=== PATIENT | female | born 1960 | race Caucasian/White ===

== ENCOUNTER 2016-04-05 08:16 | Emergency (ER) | payer MEDICAID, OTHER ==
[2016-04-05 09:12] LABS: % IMMATURE GRANULYOCYTES 0.4 % (0.0-1.1); ABSOLUTE IMMATURE GRANULOCYTES 0.02 10^3/uL (0.00-0.10); ADD DIFF? NO; ADD MORPH? NO; ADD SCAN? NO; ATYPICAL LYMPHOCYTE FLAG 10 (0-99); FRAGMENT RBC FLAG 0 (0-99); HEMATOCRIT 38.3 % (38.0-47.0); HEMOGLOBIN 13.4 g/dL (12.6-16.3); LEFT SHIFT FLG 0 (0-99); LIPEMIA HEMOLYSIS FLAG 90 (0-99); MEAN CELL HEMOGLOBIN 32.2 pg (27.9-34.1); MEAN CELL VOLUME 92.1 fL (81.5-99.8); MEAN PLATELET VOLUME 8.4 fL (8.7-11.7); PLATELET CLUMPS FLAG 0 (0-99); PLATELET COUNT 313 10^3/uL (150-400); RED BLOOD CELL COUNT 4.16 10^6/uL (4.18-5.33); RED CELL DISTRIBUTION WIDTH 12.2 % (11.5-15.2)
[2016-04-05 09:37] LABS: ANION GAP 10 mEq/L (8-16); CALCIUM 9.4 mg/dL (8.5-10.4); CARBON DIOXIDE 29 mEq/l (22-31); CHLORIDE 101 mEq/L (97-110); CREATININE 0.6 mg/dL (0.6-1.0); ETHANOL SERUM < 10 mg/dL (0-10); GLOMERULAR FILTRATION RATE > 60; GLUCOSE 83 mg/dL (70-100); POTASSIUM 4.5 mEq/L (3.5-5.2); SALICYLATE < 1.0 mg/dL (2.0-20.0); SODIUM 140 mEq/L (134-144)
--- NOTE | 2016-04-05 09:46 | EDPHY ---
H & P Stated Complaint: SI last night called crisis line, EPS placed on hold, already evaled - Personal History Current Tetanus/Diphtheria Vaccine: Yes Current Tetanus Diphtheria and Acellular Pertussis (TDAP): Yes - Medical/Surgical History Hx Asthma: No Hx Chronic Respiratory Disease: No Hx Diabetes: No Hx Cardiac Disease: No Hx Renal Disease: No Hx Cirrhosis: No Hx Alcoholism: No Hx HIV/AIDS: No Hx Splenectomy or Spleen Trauma: No Other PMH: pmh- chronic pain, bipolar, depression. psh- ortho - Social History Smoking Status: Former smoker Time Seen by Provider: 04/05/16 08:33 HPI/ROS: Chief complaint: Suicidal ideation, on mental health hold History of present illness: This is a 56-year-old female who presents to the emergency department for medical clearance for psychiatric placement. Patient reportedly has had suicidal ideation, she has had a plan of overdosing on medication. She contacted the crisis hotline last night and was evaluated by [facility] today. [facility] placed her on a mental health hold and sent her here for medical clearance in preparation for psychiatric placement. On my evaluation patient does report she had suicidal ideation. She denies suicidal ideation at this time. She denies homicidal ideation. She denies illness or injury. Review of systems: A 10 point review of systems was obtained and other than described above was negative (Danny Carmichael) - Physical Exam Exam: General Appearance: Alert, nontoxic. Eyes: Pupils equal and round no pallor or injection. ENT, Mouth: Mucous membranes moist. Respiratory: There are no retractions, lungs are clear to auscultation. Cardiovascular: Regular rate and rhythm. Gastrointestinal: Abdomen is soft and nontender, no masses, bowel sounds normal. Neurological: Alert and oriented x4. Cranial nerves 2-12 grossly intact. Strength and sensation intact and symmetrical. Skin: Warm and dry, no rashes. Musculoskeletal: Neck is supple nontender. Extremities are symmetrical, full range of motion. Psychiatric: Patient is oriented X 3, there is no agitation. (Danny Carmichael) Constitutional: Initial Vital Signs Temperature (C) 36.3 C 04/05/16 08:26 Heart Rate 63 04/05/16 08:26 Respiratory Rate 16 04/05/16 08:26 Blood Pressure 112/74 04/05/16 08:26 O2 Sat (%) 94 04/05/16 08:26 O2 Delivery Mode Room Air Allergies/Adverse Reactions: No Known Allergies Allergy (Unverified 04/25/09 19:43) Home Medications: Medication Instructions Recorded Lamictal 04/25/09 Lidocaine Patch 10/06/09 Percocet 10/06/09 fentanYL 04/17/14 Medical Decision Making ED Course/Re-evaluation: Patient seen under the supervision of my secondary supervising physician Dr. Lola Pisano. Patient presents to the emergency department on a mental health hold requiring a medical examination and clearance for psychiatric placement. On my evaluation patient is nontoxic. Afebrile and vital signs are stable. She has no specific complaints at this time. Blood studies are unremarkable. Patient is medically cleared for psychiatric placement. This is pending at time of dictation. Care of patient turned over to my attending physician Dr. Lola Pisano at end of shift. (Danny Carmichael) Differential Diagnosis: Included but not limited to depression, bipolar, schizophrenia, substance abuse (Danny Carmichael) Other Provider: The patient was evaluated and managed by the Physician Traffic Superintendent/ Nurse Practitioner. I discussed the patient's presentation and course with the midlevel provider with them and agree with the evaluation. My co-signature indicates that I have reviewed this chart and I agree with the findings and plan of care as documented. I am the secondary supervising physician. Patient was accepted transfer at 3:00 p.m.. She will be transferred to the [facility]. Transfer paperwork was signed by myself. (Lola Pisano) - Data Points Laboratory Results: Laboratory Results 04/05/16 09:01 04/05/16 09:01 04/05/16 04/05/16 09:01 08:40 WBC 5.14 10^3/uL (3.80-9.50) RBC 4.16 L 10^6/uL (4.18-5.33) Hgb 13.4 g/dL (12.6-16.3) Hct 38.3 % (38.0-47.0) MCV 92.1 fL (81.5-99.8) MCH 32.2 pg (27.9-34.1) MCHC 35.0 g/dL (32.4-36.7) RDW 12.2 % (11.5-15.2) Plt Count 313 10^3/uL (150-400) MPV 8.4 L fL (8.7-11.7) Neut % (Auto) 41.8 % (39.3-74.2) Lymph % (Auto) 47.5 H % (15.0-45.0) Pepin % (Auto) 7.0 % (4.5-13.0) Eos % (Auto) 2.3 % (0.6-7.6) Baso % (Auto) 1.0 % (0.3-1.7) Nucleat RBC Rel Count 0.0 % (0.0-0.2) Absolute Neuts (auto) 2.15 10^3/uL (1.70-6.50) Absolute Lymphs (auto) 2.44 10^3/uL (1.00-3.00) Absolute Monos (auto) 0.36 10^3/uL (0.30-0.80) Absolute Eos (auto) 0.12 10^3/uL (0.03-0.40) Absolute Basos (auto) 0.05 10^3/uL (0.02-0.10) Absolute Nucleated RBC 0.00 10^3/uL (0-0.01) Immature Gran % 0.4 % (0.0-1.1) Immature Gran # 0.02 10^3/uL (0.00-0.10) Sodium 140 mEq/L (134-144) Potassium 4.5 mEq/L (3.5-5.2) Chloride 101 mEq/L (97-110) Carbon Dioxide 29 mEq/l (22-31) Anion Gap 10 mEq/L (8-16) BUN 11 mg/dL (7-23) Creatinine 0.6 mg/dL (0.6-1.0) Estimated GFR > 60 Glucose 83 mg/dL (70-100) Calcium 9.4 mg/dL (8.5-10.4) Beta HCG, Qual NEGATIVE Salicylates < 1.0 L mg/dL (2.0-20.0) Urine Opiates Screen NEGATIVE (NEGATIVE) Acetaminophen < 10 L mcg/mL (10.0-30.0) Urine Barbiturates NEGATIVE (NEGATIVE) Ur Phencyclidine Scrn NEGATIVE (NEGATIVE) Ur Amphetamine Screen NEGATIVE (NEGATIVE) U Benzodiazepines Scrn NON-NEGATIVE H (NEGATIVE) Urine Cocaine Screen NEGATIVE (NEGATIVE) U Marijuana (THC) Screen NEGATIVE (NEGATIVE) Ethyl Alcohol < 10 mg/dL (0-10) Medications Given: Discontinued Medications Oxycodone/Acetaminophen (Percocet 5/325) 2 tab PO EDNOW ONE Stop: 04/05/16 13:39 Last Admin: 04/05/16 13:45 Dose: 2 tab Departure - Departure Disposition: Other Psych, Not [facility] Clinical Impression: Suicidal ideation Condition: Good Referrals: Zainab Lau MD [Primary Care Provider] - As per Instructions
[2016-04-05] MEDS ORDERED: OXYCODONE/APAP 5/325 TAB PO ONE (13:38)
[2016-04-05 16:43] VITALS: BP 124/89; PULSE 72; RESP 18; TEMP 98.2; O2SAT 95
[2016-04-05] MEDS ORDERED: lamoTRIgine 100 MG TAB PO ONE (19:24)
[2016-04-05] MEDS ORDERED: buPROPion 100 MG TAB PO ONE (19:25)
[2016-04-05] MEDS ORDERED: oxyCODONE IR 5 MG TAB PO ONE (19:26)
[2016-04-05] MEDS ORDERED: LORazepam 1 MG TAB PO ONE (19:27)
== END 2016-04-05 20:06 ==
LOC: EDUNIT#
DX: R45.851 Suicidal ideations (principal); Z87.891 Personal history of nicotine dependence
CPT/HCPCS: G0477; G0480

== ENCOUNTER 2016-10-16 12:26 | Day surgery (SDC) | payer MEDICAID ==
[~2016-10-16 12:26] MED LIST: FLUMAZENIL 0.5 MG/5 ML MDV IVP ONE; MIDAZOLAM 2 MG/2 ML VIAL ONE; NALOXONE HCL 0.4 MG/ML INJ ONE; NS 1,000 ML IV SCH; fentaNYL 100 MCG/2 ML INJ ONE
[2016-10-16] MEDS ORDERED: DEPO METHYLPREDNISOLONE 80 MG/ML SDV ONE (13:58)
[2016-10-16] MEDS ORDERED: IOPAMIDOL (ISOVUE-M 300) 15 ML VIAL ONE (13:58)
[2016-10-16] MEDS ORDERED: LIDOCAINE 1% 300 MG/30 ML SDV ONE (13:58)
[2016-10-16] MEDS ORDERED: BUPIVACAINE 0.5% 30 ML SDV ONE (13:58)
== END 2016-10-16 15:00 | disposition home or self-care (01) ==
LOC: FIMAGING 12:26
PROVIDERS: ATTEND Radiology Diagnostic Radiology
PROC: 3E0S33Z Introduction of Anti-inflammatory into Epidural Space, Percutaneous Approach (ICD-10-PCS; principal; 2016-10-16 14:15)
PROC: 3E0S3BZ Introduction of Anesthetic Agent into Epidural Space, Percutaneous Approach (ICD-10-PCS; principal; 2016-10-16 14:15)
PROC: B01B1ZZ Fluoroscopy of Spinal Cord using Low Osmolar Contrast (ICD-10-PCS; principal; 2016-10-16 14:15)
DX: M96.1 Postlaminectomy syndrome, not elsewhere classified (principal); M54.2 Cervicalgia; Z98.1 Arthrodesis status
CPT/HCPCS: J1040; J2250; J2310; J3010; Q9967

== ENCOUNTER → 2017-03-03 | Outpatient (CLI) | payer MEDICAID | LOC: FIMAGING 08:40 | PROVIDERS: ATTEND Orthopaedic Surgery Orthopaedic Surgery of the Spine | DX: M43.16 Spondylolisthesis, lumbar region (principal); M51.36 Other intervertebral disc degeneration, lumbar region ==

== ENCOUNTER → 2017-03-09 | Outpatient (CLI) | payer MEDICAID | LOC: FIMAGING 14:44 | PROVIDERS: ATTEND Internal Medicine | DX: M51.36 Other intervertebral disc degeneration, lumbar region (principal); M12.88 Other specific arthropathies, not elsewhere classified, other specified site; M51.26 Other intervertebral disc displacement, lumbar region; M79.671 Pain in right foot; M79.672 Pain in left foot ==

== ENCOUNTER → 2017-04-13 | Outpatient (CLI) | payer MEDICAID | LOC: FIMAGING 18:54 | PROVIDERS: ATTEND Neurological Surgery | DX: M43.12 Spondylolisthesis, cervical region (principal); M47.22 Other spondylosis with radiculopathy, cervical region; M50.30 Other cervical disc degeneration, unspecified cervical region; M48.02 Spinal stenosis, cervical region; Z98.1 Arthrodesis status ==

== ENCOUNTER 2017-04-20 11:11 | Inpatient (IN) | payer MEDICAID ==
[2017-04-20] MEDS ORDERED: IPRATROPIUM/ALBUTEROL 3 ML DEYVIAL ONE (11:42)
[2017-04-20] MEDS ORDERED: NS 1,000 ML IV ONE (11:46)
[2017-04-20] MEDS ORDERED: IPRATROPIUM/ALBUTEROL 3 ML DEYVIAL IH ONE (11:46)
[2017-04-20 12:08] LABS: PLATELET COUNT 228 10^3/uL (150-400)
--- NOTE | 2017-04-20 12:54 | EDPHY ---
H & P Stated Complaint: SOB Time Seen by Provider: 04/20/17 11:41 HPI/ROS: CHIEF COMPLAINT: Fever, cough, nausea. HISTORY OF PRESENT ILLNESS: This patient is a 57 year old female with history of chronic pain, bipolar disease, and depression arriving at the request of her primary care provider Dr. Lau for evaluation of hypoxemia. She had some congestion and otalgia last week, and Wednesday morning, she developed a productive cough. Around 7pm that evening, she had coughing fit with associated pain in her throat. Since Wednesday, she has been nauseous and unable to keep down food, fluids, or medication. She generally takes oxycodone, Lamictal, and Wellbutrin. She endorses facial pain, especially in her jaw and teeth. This has prevented her from sleeping. She feels tightness in her chest as well. She has been febrile with fever that waxes and wanes, measured at 103 at the highest. She was unable to take Tylenol for fever reduction due to her vomiting. She did receive a flu shot this year. She denies diarrhea, abdominal pain, urinary complaints, or other associated symptoms. REVIEW OF SYSTEMS: A 10 point review of systems was performed and is negative with the exception of the elements mentioned in the history of present illness. Past medical history: Chronic pain. Bipolar disease. Depression. Surgical history: Rotator cuff surgery. Family history: Noncontributory. 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 Lives in [place]. General Appearance: Alert, no acute distress. SpO2 88% at triage. All VS reviewed. Eyes: Pupils equal and round, no conjunctival injection, no discharge. ENT, Mouth: Maxillary and frontal sinus tenderness. Mucous membranes are moist, no oropharyngeal erythema or edema. Neck: No lymphadenopathy, supple. No meningeal signs. Respiratory: Breath sounds distant bilaterally; no wheezes, rales, or rhonchi. Cardiovascular: Regular rate and rhythm; no murmur, rub, or gallop. Gastrointestinal: Abdomen is soft and non tender, no masses or organomegaly, bowel sounds normal. Skin: Warm and dry, no rashes, normal color. Back: Nontender to palpation over the thoracolumbar spine. Extremities: No lower extremity edema, no calf tenderness or swelling. Neurological: Alert and oriented. Moving all four extremities easily and equally. Psychiatric: Normal affect. - Personal History Current Tetanus/Diphtheria Vaccine: Yes Current Tetanus Diphtheria and Acellular Pertussis (TDAP): Yes - Medical/Surgical History Hx Asthma: No Hx Chronic Respiratory Disease: No Hx Diabetes: No Hx Cardiac Disease: No Hx Renal Disease: No Hx Cirrhosis: No Hx Alcoholism: No Hx HIV/AIDS: No Hx Splenectomy or Spleen Trauma: No Other PMH: pmh- chronic pain, bipolar, depression. psh- ortho - Social History Smoking Status: Former smoker Constitutional: Initial Vital Signs Temperature (C) 36.8 C 04/20/17 11:14 Heart Rate 91 04/20/17 11:14 Respiratory Rate 16 04/20/17 11:14 Blood Pressure 112/76 04/20/17 11:14 O2 Sat (%) 88 L 04/20/17 11:14 O2 Delivery Mode Nasal Cannula O2 (L/minute) 2 Allergies/Adverse Reactions: No Known Allergies Allergy (Unverified 04/20/17 11:14) Home Medications: Medication Instructions Recorded Bupropion HCl [Wellbutrin Xl] 300 mg PO DAILY 04/20/17 Lidocaine 5% [Lidoderm 5% Patch 1 ea TD DAILY PRN 04/20/17 (*)] Ondansetron Odt [Zofran Odt 4 mg 4 mg PO Q4H PRN 04/20/17 (*)] celeCOXIB [Celebrex (*)] 200 mg PO DAILY PRN 04/20/17 lamoTRIgine [LamICTAL 100 MG (*)] 150 mg PO DAILY 04/20/17 oxyCODONE HCL [Oxycontin] 20 mg PO BID 04/20/17 oxyCODONE IR [Oxycodone Ir (*)] 20 mg PO QID 04/20/17 Medical Decision Making - Diagnostics Imaging: I viewed and interpreted images myself ED Course/Re-evaluation: 57 y/o female presents with four day history of fever, cough, nausea. Breath sounds are distant bilaterally on exam. Plan for chest x-ray, labs including CBC , chemistries, lactate, flu swab. Plan to administer DuoNeb, 1L IV NS. Chest x-ray shows patchy bilateral infiltrate/pneumonia. I reveiwed images. See radiologist report. WBC elevated at 11,000. Lactate normal. Nothing to indicated sepsis. Influenza PCR negative, full respiratory pathogen panel pending. N fever in ED. 13:02 Plan to administer 500mg IV Azithromycin, 1gm IV Rocephin. 13:[address] Chandler, hospitalist. He accepts admission for pneumonia with hypoxia, sinusitis. Differential Diagnosis: I considered ddx of fever that includes but is not limited to otitis media, sinusitis, pneumonia, influenza, meningitis. - Data Points Laboratory Results: Laboratory Results 04/21/17 10:33 04/21/17 10:33 Medications Given: Albuterol/Ipratropium (Duoneb) 3 ml IH QID [facility] Stop: 10/17/17 15:59 Last Admin: 04/22/17 05:03 Dose: 3 ml Bupropion HCl (Wellbutrin Xl) 300 mg PO DAILY ECHO Stop: 10/18/17 08:59 Last Admin: 04/22/17 09:24 Dose: 300 mg Chlorphenir/Hydrocodone Polistirex (Tussionex Suspension) 5 ml PO Q12HRS PRN PRN Reason: Cough, Severe Stop: 10/18/17 16:25 Last Admin: 04/22/17 05:34 Dose: 5 ml Enoxaparin Sodium (Lovenox) 40 mg SC DAILY ECHO Stop: 10/18/17 08:59 Last Admin: 04/21/17 09:19 Dose: 40 mg Guaifenesin (Mucinex) 600 mg PO BID [facility] Stop: 10/17/17 15:38 Last Admin: 04/22/17 09:24 Dose: 600 mg Hydromorphone HCl (Dilaudid) 0.5 - 1 mg IVP Q4HRS PRN PRN Reason: Pain, Severe Unable to Take PO Stop: 04/30/17 15:32 Last Admin: 04/20/17 16:14 Dose: 0.5 mg Azithromycin 500 mg/ Dextrose 255 mls @ 255 mls/hr IV DAILY ECHO PRN Reason: Protocol Stop: 05/21/17 08:59 Last Admin: 04/21/17 08:57 Dose: 255 mls Ceftriaxone Sodium/Dextrose (Rocephin 1 Gm (Premix)) 50 mls @ 100 mls/hr IV DAILY ECHO PRN Reason: Protocol Stop: 05/21/17 08:59 Last Admin: 04/22/17 09:22 Dose: 50 mls Lamotrigine (Lamictal) 150 mg PO DAILY ECHO Stop: 10/17/17 18:29 Last Admin: 04/22/17 09:23 Dose: 150 mg Magnesium Hydroxide (Milk Of Magnesia) 30 ml PO DAILY PRN PRN Reason: Constipation Stop: 10/18/17 16:31 Last Admin: 04/21/17 16:50 Dose: 30 ml Oxycodone HCl (Oxycontin) 20 mg PO BID ECHO Stop: 04/30/17 20:59 Last Admin: 04/22/17 09:24 Dose: 20 mg Oxycodone HCl (Oxycodone Ir) 20 mg PO QID ECHO Stop: 04/30/17 20:59 Last Admin: 04/22/17 05:17 Dose: 20 mg Prednisone (Prednisone) 40 mg PO DAILY [facility] Stop: 10/18/17 16:29 Last Admin: 04/22/17 09:24 Dose: 40 mg Discontinued Medications Albuterol/Ipratropium (Duoneb) 3 ml IH EDNOW ONE Stop: 04/20/17 11:47 Last Admin: 04/20/17 11:47 Dose: 3 ml Sodium Chloride (Ns) 1,000 mls @ 0 mls/hr IV ONCE ONE PRN Reason: Wide Open Stop: 04/20/17 11:47 Last Admin: 04/20/17 11:47 Dose: 1,000 mls Azithromycin 500 mg/ Dextrose 255 mls @ 255 mls/hr IV EDNOW ONE PRN Reason: Protocol Stop: 04/20/17 14:01 Last Admin: 04/20/17 14:17 Dose: 255 mls Ceftriaxone Sodium/Dextrose (Rocephin 1 Gm (Premix)) 50 mls @ 100 mls/hr IV EDNOW ONE PRN Reason: Protocol Stop: 04/20/17 13:31 Last Admin: 04/20/17 13:10 Dose: 50 mls Ondansetron HCl (Zofran Odt) 4 mg PO Q4HRS PRN PRN Reason: Nausea/Vomiting, Use 1st Stop: 10/17/17 15:32 Last Admin: 04/20/17 16:09 Dose: 4 mg Departure - Departure Disposition: [facility] Clinical Impression: Pneumonia Qualifiers: Pneumonia type: due to unspecified organism Laterality: bilateral Lung location : lower lobe of lung Qualified Code(s): J18.9 - Pneumonia, unspecified organism Sinusitis Qualifiers: Sinusitis location: unspecified location Chronicity: acute Recurrence: not specified as recurrent Qualified Code(s): J01.90 - Acute sinusitis, unspecified Condition: Fair Report Scribed for: Yara Benavidez Report Scribed by: Smiley Diana Date of Report: 04/20/17 Time of Report: 13:04 Physician Review and Approval Statement: 04/22/17 09:35 Portions of this chart were entered by a medical record clerk. I personally performed the HPI, MDM, PE. I have reviewed the chart and agree with the documentation.
[2017-04-20] MEDS ORDERED: AZITHROMYCIN IV 500 MG in D5W 250 ML IV ONE (13:02)
[2017-04-20] MEDS ORDERED: PROMETHAZINE HCL 25 MG/ML INJ IVP PRN (15:33)
[2017-04-20] MEDS ORDERED: ALBUTEROL 3 ML DEYVIAL IH PRN (15:33)
[2017-04-20] MEDS ORDERED: ONDANSETRON DISINTEGRATING 4 MG TAB PO PRN ×2 (15:33→18:17)
[2017-04-20] MEDS ORDERED: ONDANSETRON 4 MG/2 ML VIAL IVP PRN (15:33)
[2017-04-20] MEDS ORDERED: HYDROmorphONE/DILAUDID 1 MG/ML INJ IVP PRN (15:33)
[2017-04-20] MEDS ORDERED: ACETAMINOPHEN 325 MG TAB PO PRN (15:33)
--- NOTE | 2017-04-20 15:56 | ASMTCMCOM ---
CM Note CM Note Notes: Pt has been admitted with hypoxemia, possible PNA. Hx Bipolar d/o, chronic pain. CM will follow for any d/c needs. Date Signed: 04/20/2017 03:55 PM Electronically Signed By:SAMIA Guerrero
[2017-04-20] MEDS: guaiFENesin 600 MG TAB.ER PO SCH ×2 (16:17→20:53)
--- NOTE | 2017-04-20 16:22 | GHP ---
[f rep st] HISTORY AND PHYSICAL DATE OF ADMISSION: 04/20/2017 HISTORY OF PRESENT ILLNESS: The patient is a pleasant 57-year-old female with history of chronic delvin n from neck surgery who presents with about a week of malaise and cough with increased shortness of b reath and some nausea. She went to see her Primary Care Physician for an unrelated event. There, holden tay was found to be hypoxic on room air. She was referred to the emergency department for further eval uation. She has had some nausea, no fever. She has been unable to take her pain medicines. She salvador es oxycodone and OxyContin as well as a lidocaine patch. She has had some increased pain associated with that. She has been eating and drinking poorly. REVIEW OF SYSTEMS: Complete 10-point Review of Systems conducted and negative except as in the HPI. PAST MEDICAL HISTORY: Chronic pain with neck surgeries. ALLERGIES: No known drug allergies. MEDICATIONS: Home medications are: 1. Lamictal. 2. Lidocaine patch. 3. Oxycodone 20 t.i.d. 4. Wellbutrin. SOCIAL HISTORY: Rare alcohol. Quit smoking almost 30-years ago. Lives in [place], has children, ma rried currently not working. FAMILY HISTORY: Reviewed and unremarkable. PHYSICAL EXAMINATION: VITAL SIGNS: Temp 36.8, blood pressure 112/76, pulse 91, breathing 16 times a minute, 88% on room air. GENERAL: No acute distress. HEENT: Sclerae anicteric. Oropharynx clear. Mucous membranes moist. NECK: Supple. No lymphadenopathy. LUNGS: Rhonchorous anterolaterally with wet cough. HEART: S1 and S2. Not tachycardic. ABDOMEN: Soft, nontender, nondistended. LOWER EXTREMITIES: No edema. Calves nontender. SKIN: Without rash. NEUROLOGIC: Nonfocal. LABS: White count 11, hematocrit 38.6, platelets 228,000, venous lactate 0.9. Sodium 129, potassium 3.9, chloride 90, bicarb 23, BUN 10, creatinine 0.7, glucose 122. Negative for influenza A and B. _ . Chest x-ray interpreted by me, shows airway disease, bilateral interstitial pattern consistent with p ossible interstitial pneumonia. Discussed case Dr. Yara Benavidez. ASSESSMENT AND PLAN: This is a 57-year-old female, here with hypoxia and interstitial pneumonia. 1. Pneumonia. Possibly viral syndrome, but it is reasonable to treat as community-acquired pneumoni a, which is the diagnosis with ceftriaxone azithromycin. 2. Hypoxemic respiratory failure. Antibiotics as above. I will give her some scheduled DuoNeb for the first 24-hours. We will provide her with some Mucinex. 3. Chronic pain, will continue her medicines when they have been reconciled. I will give her a coup le doses of IV pain medicines now given her pain and her nausea. 4. Nausea, give her dose of Phenergan, maybe get her IV pain medicines down thereafter. 5. Prophylaxis, low molecular heparin. DISPOSITION: Observation status. /[id number]/MODL
[2017-04-20] MEDS: IPRATROPIUM/ALBUTEROL 3 ML DEYVIAL IH SCH ×2 (17:05→20:09)
[2017-04-20] MEDS ORDERED: LIDOCAINE 5% 1 EA PATCH TD PRN (18:17)
[2017-04-20] MEDS: oxyCODONE IR 5 MG TAB PO SCH (20:53)
[2017-04-20] MEDS: lamoTRIgine 100 MG TAB PO SCH (20:56)
[2017-04-21] MEDS: IPRATROPIUM/ALBUTEROL 3 ML DEYVIAL IH SCH ×4 (05:16→20:33)
[2017-04-21] MEDS: oxyCODONE IR 5 MG TAB PO SCH ×4 (05:39→20:42)
[2017-04-21] MEDS: AZITHROMYCIN IV 500 MG in D5W 250 ML IV SCH (08:57)
[2017-04-21] MEDS ORDERED: NON-FORMULARY NEW DRUG (Bupropion Hcl [Wellbutrin Xl] 300 MG) PO SCH (09:00)
[2017-04-21] MEDS: ENOXAPARIN 40 MG/0.4 ML SYR SC SCH (09:19)
[2017-04-21] MEDS: lamoTRIgine 100 MG TAB PO SCH (09:19)
[2017-04-21] MEDS: guaiFENesin 600 MG TAB.ER PO SCH ×2 (09:20→20:42)
[2017-04-21] MEDS: buPROPion XL 150 MG TAB PO SCH (09:20)
[2017-04-21 10:37] LABS: PLATELET COUNT 234 10^3/uL (150-400)
--- NOTE | 2017-04-21 16:34 | HOSPPROG ---
Hospitalist Progress Note Assessment/Plan: # suspected CAP; also consider viral process - check viral resp panel, pct - cont rocephin, azith - start prednisone # acute hypoxic resp failure - still satting 87% with ambulation - cont nebs, abx, steroids # chronic pain on continuous narcotics - cont home meds # hypoNa - resolved Subjective: feels dizzy with ambulation Objective: Vital Signs Temp Pulse Resp BP Pulse Ox 36.6 C 85 18 104/70 96 04/21/17 08:46 04/21/17 15:55 04/21/17 15:55 04/21/17 08:46 04/21/17 15:55 Laboratory Results 04/21/17 10:33 04/21/17 10:33 04/20/17 04/21/17 04/22/17 05:59 05:59 05:59 Intake Total 1305 Balance 1305 chart reviewed CXR personally reviewed - Physical Exam Constitutional: no apparent distress, appears nourished Cardiovascular: regular rate and rhythym, no murmur, rub, or gallop, systolic murmur Respiratory: no rales or rhonchi, clear to auscultation, other (mild resp distress), No expiratory wheeze, No inspiratory crackles Gastrointestinal: normoactive bowel sounds, soft, non-tender abdomen, no palpable masses ICD10 Worksheet Patient Problems: Problems Problem Status Onset Pneumonia Acute Sinusitis Acute
[2017-04-21] MEDS: MAGNESIUM HYDROXIDE 30 ML UDCUP PO PRN (16:50)
[2017-04-21] MEDS: predniSONE 20 MG TAB PO SCH (16:50)
[2017-04-21] MEDS: HYDROcodone/CPM TUSSIONEX 5 ML UDSYR PO PRN (17:05)
--- NOTE | 2017-04-21 17:55 | PDMN ---
Medical Necessity Medical necessity: Change to IP, as of 04/21/17, per MD; los >2 mn for ongoing management/tx of suspected CAD (also consider viral process) & acute hypoxic respiratory failure; admit for further workup/monitoring, IV abx, Prednisone & nebs; per progress note & order 04/21/17
[2017-04-22] MEDS: IPRATROPIUM/ALBUTEROL 3 ML DEYVIAL IH SCH ×4 (05:03→20:37)
[2017-04-22] MEDS: oxyCODONE IR 5 MG TAB PO SCH ×4 (05:17→20:59)
[2017-04-22] MEDS: HYDROcodone/CPM TUSSIONEX 5 ML UDSYR PO PRN ×2 (05:34→17:54)
[2017-04-22] MEDS: lamoTRIgine 100 MG TAB PO SCH (09:23)
[2017-04-22] MEDS: predniSONE 20 MG TAB PO SCH (09:24)
[2017-04-22] MEDS: buPROPion XL 150 MG TAB PO SCH (09:24)
[2017-04-22] MEDS: guaiFENesin 600 MG TAB.ER PO SCH ×2 (09:24→21:00)
[2017-04-22] MEDS: ENOXAPARIN 40 MG/0.4 ML SYR SC SCH (09:32)
[2017-04-22] MEDS: AZITHROMYCIN IV 500 MG in D5W 250 ML IV SCH (10:52)
[2017-04-22] MEDS ORDERED: ACETYLCYSTEINE 20% IH/PO 4 ML VIAL IH ONE (11:40)
--- NOTE | 2017-04-22 11:48 | HOSPPROG ---
Hospitalist Progress Note Assessment/Plan: # parainfluenza pna, possible bacterial superinfection - stop rocephin, cont azith D#3/5, change to PO - prednisone - flutter valve, IS, nebs, trial of mucomyst # acute hypoxic resp failure - desats to 86% on RA - cont tx as above # chronic pain on continuous narcotics - cont home meds # hypoNa - resolved Subjective: feels terribly; desated on RA Objective: Vital Signs Temp Pulse Resp BP Pulse Ox 36.8 C 72 18 108/68 93 04/22/17 08:45 04/22/17 10:10 04/22/17 10:10 04/22/17 08:45 04/22/17 10:58 Microbiology 04/21/17 17:20 Respiratory Panel (PCR) - Final Nasal, Sinus - Swab Parainfluenza Virus Type 3 04/21/17 04/22/17 04/23/17 05:59 05:59 05:59 Intake Total 1850 Balance 1850 - Physical Exam Constitutional: no apparent distress, appears nourished Cardiovascular: regular rate and rhythym, no murmur, rub, or gallop, systolic murmur Respiratory: no rales or rhonchi, respiratory distress (mild), other ( diminished BS bilat) Gastrointestinal: normoactive bowel sounds, soft, non-tender abdomen ICD10 Worksheet Patient Problems: Problems Problem Status Onset Pneumonia Acute Sinusitis Acute
[2017-04-22] MEDS: MAGNESIUM HYDROXIDE 30 ML UDCUP PO PRN (11:53)
[2017-04-23] MEDS: IPRATROPIUM/ALBUTEROL 3 ML DEYVIAL IH SCH ×2 (05:16→10:40)
[2017-04-23] MEDS: oxyCODONE IR 5 MG TAB PO SCH ×2 (05:43→11:59)
[2017-04-23] MEDS: HYDROcodone/CPM TUSSIONEX 5 ML UDSYR PO PRN (06:09)
[2017-04-23] MEDS: predniSONE 20 MG TAB PO SCH (08:11)
[2017-04-23] MEDS: buPROPion XL 150 MG TAB PO SCH (08:11)
[2017-04-23] MEDS: guaiFENesin 600 MG TAB.ER PO SCH (08:11)
[2017-04-23] MEDS: lamoTRIgine 100 MG TAB PO SCH (08:12)
[2017-04-23] MEDS: ENOXAPARIN 40 MG/0.4 ML SYR SC SCH (08:12)
[2017-04-23] MEDS ORDERED: AZITHROMYCIN 250 MG TAB PO SCH (09:00)
[2017-04-23 12:04] VITALS: BP 141/91; PULSE 964; RESP 17; TEMP 98.1; O2SAT 94
--- NOTE | 2017-04-23 14:35 | ASDISCHSUM ---
Discharge Information Plan Status: Medically Cleared to Leave: Discharge Date:04/23/2017 01:39 PM CM D/C Disposition: ADT D/C Disposition:Home, Routine, Self-Care Projected Discharge Date:04/23/2017 01:39 PM Transportation at D/C: Discharge Delay Reason: Follow-Up Date:04/23/2017 01:39 PM Discharge Slot: Final Diagnosis: Placement Information Patient Contact Information Contact Name:MADISYN Relationship:Sister Address: City: [facility] Phone: State/Zip Code: Email: Financial Information Financial Class: Primary Plan Desc:[employer] [place] Primary Plan Number:[id number] Secondary Plan Desc: Secondary Plan Number: Assessment Information [facility] CM Progress Note CM Note CM Note Notes: Pt has been admitted with hypoxemia, possible PNA. Hx Bipolar d/o, chronic pain. CM will follow for any d/c needs. Date Signed: 04/20/2017 03:55 PM Electronically Signed By:SAMIA Guerrero Intervention Information
--- NOTE | 2017-04-23 19:07 | GDS ---
[f rep st] DISCHARGE SUMMARY FINAL DIAGNOSES: 1. Parainfluenza pneumonia, possible bacterial super infection. 2. Possible mild underlying chronic obstructive pulmonary disease. 3. Acute hypoxic respiratory failure. 4. Chronic pain, on continuous narcotics. 5. Hyponatremia. HOSPITAL COURSE: A 57-year-old female admitted with hypoxia in the setting of parainfluenza, lower r espiratory tract infection. She had a significant interstitial pneumonia seen on her chest x-ray. T reated for possible underlying bacterial infection with a course of azithromycin. She received about 2 days of Rocephin. On the day of discharge, she is no longer hypoxic, feels significantly better a nd ready to go home. I have recommended that she not exert herself for the past few days and return to the hospital if she has worsening shortness of breath, which is not relieved with rest. She is co mfortable with this plan. She will be discharged with an additional 1 day of azithromycin. I will give her an additional 3 day s of prednisone treatment. I have given her an albuterol inhaler, as well as Tussionex to suppress h er cough at night. She will, otherwise, continue her outpatient medications. FOLLOWUP: Dr. Lau. BILLING: I spent more than 30 minutes on the day of discharge coordinating care. /[id number]/DHAVALL
== END 2017-04-23 13:39 | disposition home or self-care (01) | DRG 193 ==
LOC: F1N 14:09 → OBSVTOIN 04-21 16:26
PROVIDERS: ADMIT Internal Medicine; ATTEND Internal Medicine
DX: J12.2 Parainfluenza virus pneumonia (principal); J96.01 Acute respiratory failure with hypoxia; E87.1 Hypo-osmolality and hyponatremia; B96.89 Other specified bacterial agents as the cause of diseases classified elsewhere; J44.9 Chronic obstructive pulmonary disease, unspecified; G89.29 Other chronic pain; Z87.891 Personal history of nicotine dependence; J01.90 Acute sinusitis, unspecified
CPT/HCPCS: 96374; G0378; J0456; J0696; J1170; J1650; J7512; J7608

== ENCOUNTER → 2017-05-17 | Outpatient (CLI) | payer MEDICAID | LOC: FIMAGING 11:43 | PROVIDERS: ATTEND Internal Medicine | DX: Z12.31 Encounter for screening mammogram for malignant neoplasm of breast (principal) ==

== ENCOUNTER → 2017-05-19 | Outpatient (CLI) | payer MEDICAID | LOC: FIMAGING 15:22 | PROVIDERS: ATTEND Internal Medicine | DX: R92.8 Other abnormal and inconclusive findings on diagnostic imaging of breast (principal) ==

== ENCOUNTER 2017-06-27 12:11 | Emergency (ER) | payer MEDICAID ==
[2017-06-27 12:17] VITALS: TEMP 98.6
--- NOTE | 2017-06-27 12:37 | CPEKG ---
Heart Rate: 102 RR Interval: 588 P-R Interval: 124 QRSD Interval: 66 QT Interval: 344 QTC Interval: 449 P Dickson: 51 QRS Dickson: -25 T Wave Dickson: 51 EKG Severity - ABNORMAL ECG - EKG Impression: SINUS TACHYCARDIA EKG Impression: CONSIDER LEFT VENTRICULAR HYPERTROPHY Electronically Signed By: Jose Maria Morales 29-Jun-2017 16:20:09
[2017-06-27] MEDS ORDERED: NS 1,000 ML IV ONE (12:51)
--- NOTE | 2017-06-27 12:51 | EDPHY ---
H & P Stated Complaint: "heart racing" ina cp--could have slept walked and injured self on ambien Time Seen by Provider: 06/27/17 12:50 HPI/ROS: HPI: This is a 57-year-old female who presents with Chief Complaint: "heart racing" ina cp--could have slept walked and injured self on Ambien Location: Epigastric Quality: Pressure Duration: Starting this morning Signs and Symptoms: no shortness of breath at rest, no shortness of breath on exertion, no cough, no chest pain, no palpitations, no lower extremity edema, no wheezing, no orthopnea, no paroxysmal nocturnal dyspnea, no fever, no injury/ trauma, no hemoptysis, no carpal pedal spasms Timing: Rapid onset, constant Severity: Moderate Context: Patient reports that she has had increased stress and anxiety lately presents with complaints of her heart racing and denies palpitations since waking up this morning. She believes it may be related to her Ambien but she is not sure. She is taking Ambien in the past without any side effects. She denies any prior cardiac history. She does not have any nausea/vomiting/ diaphoresis/lower extremity edema. No recent long distance travel. Patient reports that the symptoms have been present for approximately 5-8 hours. She has no history of abdominal surgeries and denies any indigestion/early satiety. She has tried nothing for the symptoms. After further questioning patient has a history of cervical fusion; reports that she may have slept funny last night as she has some posterior nagging, nonradiating pain. She believes that this could be causing her heart to race. Modifying Factors: None Comment: ROS: see HPI Constitutional: No fever, no chills, no weight loss Eyes: No blurred vision Respiratory: No shortness of breath, no cough Cardiovascular: No chest pain, no palpitations, no lower extremity edema Gastrointestinal: No nausea, no vomiting, no diarrhea Genitourinary: No dysuria Extremities: No myalgias Neurologic: No weakness, no numbness Skin: No rashes Hematologic: No bruising, no bleeding MEDICAL/SURGICAL/SOCIAL HISTORY: pmh- chronic pain, bipolar, depression psh- ortho, cervical fusion Social history: Employed CONSTITUTIONAL: Extremely anxious and tearful adult female, awake and alert, no obvious distress HEENT: Atraumatic and normocephalic, PERRL, EOMI. Tympanic membranes clear. Oropharynx clear, no exudate and moist pink mucosa. Airway patent. No lymphadenopathy. No meningismus. NECK: supple, no midline tenderness, flexion 45 degrees, extension 45 degrees, right and left lateral flexion 45 degrees. No meningismus. Cardiovascular: Normal S1/S2, mild tachycardia, regular rhythm, without murmur rub or gallop. PULMONARY/CHEST: Symmetrical and nontender. Clear to auscultation bilaterally. Good air movement. No accessory muscle usage. ABDOMEN: Soft, nondistended, nontender, no rebound, no guarding, no peritoneal signs, no masses or organomegaly. No CVAT. EXTREMITIES: 2/2 pulses, strength 5/5, no deformities, no clubbing, no cyanosis or edema. NEUROLOGICAL: no focal neuro deficits. GCS 15. SKIN: Warm and dry, no erythema. no rash. Good capillary refill. Source: Patient Exam Limitations: No limitations - Medical/Surgical History Hx Asthma: No Hx Chronic Respiratory Disease: No Hx Diabetes: No Hx Cardiac Disease: No Hx Renal Disease: No Hx Cirrhosis: No Hx Alcoholism: No Hx HIV/AIDS: No Hx Splenectomy or Spleen Trauma: No Other PMH: pmh- chronic pain, bipolar, depression. psh- ortho - Social History Smoking Status: Former smoker Constitutional: Initial Vital Signs Temperature (C) 37.0 C 06/27/17 12:15 Heart Rate 121 H 06/27/17 12:15 Respiratory Rate 18 06/27/17 12:15 Blood Pressure 119/83 H 06/27/17 12:15 O2 Sat (%) 97 06/27/17 12:15 O2 Delivery Mode Room Air Allergies/Adverse Reactions: No Known Allergies Allergy (Unverified 04/20/17 11:14) Home Medications: Medication Instructions Recorded Bupropion HCl [Wellbutrin Xl] 300 mg PO DAILY 04/20/17 Lidocaine 5% [Lidoderm 5% Patch] 1 ea TD DAILY PRN 04/20/17 Ondansetron Odt [Zofran Odt 4 mg 4 mg PO Q4H PRN 04/20/17 (*)] celeCOXIB [Celebrex (*)] 200 mg PO DAILY PRN 04/20/17 lamoTRIgine [LamICTAL 100 MG (*)] 150 mg PO DAILY 04/20/17 oxyCODONE HCL [Oxycontin] 20 mg PO BID 04/20/17 oxyCODONE IR [Oxycodone Ir (*)] 20 mg PO QID 04/20/17 Albuterol Sulfate [Proventil Hfa] 6.7 gm IH Q4 #1 hfa.aer.ad 04/23/17 Azithromycin [Zithromax] 250 mg PO DAILY tab 04/23/17 HYDROcodone/CPM TUSSIONEX 5 ml PO HS #1 btl 04/23/17 [Tussionex Suspension (RX)] HYDROcodone/CPM TUSSIONEX 115 ml PO HS #1 btl 04/23/17 [Tussionex Suspension (RX)] predniSONE 40 mg PO DAILY #3 tablet 04/23/17 Cyclobenzaprine [Flexeril 10 MG 10 mg PO TID PRN #15 tab 06/27/17 (*)] Lidocaine [Lidoderm] 1 each TP Q12 PRN #6 adh..patch 06/27/17 oxyCODONE/APAP 5/325 [Percocet 1 - 2 tab PO Q4H PRN #10 tab 06/27/17 5/325 (*)] Medical Decision Making - Diagnostics EKG Interpretation: 12 lead EKG: Indication: Epigastric pain Rhythm: Sinus tachycardia, 102 beats per minute [place]: Left Intervals: Normal QRS: Normal ST segments: Normal INTERPRETATION: Normal EKG The 12 lead EKG was interpreted by myself and with attending. Imaging Results: Imaging Impressions Chest X-Ray 06/27/17 12:52 Impression: Clear lungs. No acute process. Improved airways disease since April 2017. ED Course/Re-evaluation: EKG, chest x-ray, labs, IV fluids, IV medications ordered EKG shows no arrhythmias shows mild sinus tachycardia. Given 1 L normal saline, IV Ativan, IV Decadron with near complete relief of symptoms. Chest x-ray my read shows no effusion, no opacity, no pneumothorax, no widened mediastinum. 1350: Labs reviewed; no signs of VTE/anemia/electrolyte imbalance/thyroid disease/ACS Advised follow up with Cardiology if symptoms persist for Holter monitor. 1415: Reassessed patient who now reports that epigastric and chest pain has resolved. Discussed all of the negative findings. Heart rate now is between 90 -95. She complains of acute on chronic cervical posterior neck pain. She reports that in the past, it was difficult to control her pain. 1515: Reassessed patient. Sleeping soundly. Discharge home for further care. This patient was seen under the supervision of my secondary supervising physician. I evaluated care for this patient independently. Addendum 1625: Called by [facility] pharmacy and spoke with the pharmacist who advised that patient had 120 OxyContin 20 mg tablets filled at the beginning of the month. I advised not to fill #10 tablets of Percocet. Differential Diagnosis: Chest pain including but not limited to myocardial ischemia, pulmonary embolus, chest wall pain, pleural inflammation and pulmonary infectious causes. - Data Points Laboratory Results: Laboratory Results 06/27/17 12:40 06/27/17 12:40 06/27/17 06/27/17 06/27/17 12:40 12:40 12:40 WBC 6.71 10^3/uL 10^3/uL (3.80-9.50) RBC 4.70 10^6/uL 10^6/uL (4.18-5.33) Hgb 14.8 g/dL g/dL (12.6-16.3) Hct 40.6 % % (38.0-47.0) MCV 86.4 fL fL (81.5-99.8) MCH 31.5 pg pg (27.9-34.1) MCHC 36.5 g/dL g/dL (32.4-36.7) RDW 12.2 % % (11.5-15.2) Plt Count 453 10^3/uL H 10^3/uL (150-400) MPV 8.4 fL L fL (8.7-11.7) Neut % (Auto) 71.8 % % (39.3-74.2) Lymph % (Auto) 20.7 % % (15.0-45.0) Wilkin % (Auto) 6.7 % % (4.5-13.0) Eos % (Auto) 0.1 % L % (0.6-7.6) Baso % (Auto) 0.4 % % (0.3-1.7) Nucleat RBC Rel Count 0.0 % % (0.0-0.2) Absolute Neuts (auto) 4.81 10^3/uL 10^3/uL (1.70-6.50) Absolute Lymphs (auto) 1.39 10^3/uL 10^3/uL (1.00-3.00) Absolute Monos (auto) 0.45 10^3/uL 10^3/uL (0.30-0.80) Absolute Eos (auto) 0.01 10^3/uL L 10^3/uL (0.03-0.40) Absolute Basos (auto) 0.03 10^3/uL 10^3/uL (0.02-0.10) Absolute Nucleated RBC 0.00 10^3/uL 10^3/uL (0-0.01) Immature Gran % 0.3 % % (0.0-1.1) Immature Gran # 0.02 10^3/uL 10^3/uL (0.00-0.10) D-Dimer < 0.27 ug/mLFEU ug/mLFEU (0.00-0.50) Sodium 140 mEq/L mEq/L (135-145) Potassium 4.5 mEq/L mEq/L (3.5-5.2) Chloride 103 mEq/L mEq/L (97-110) Carbon Dioxide 21 mEq/l L mEq/l (22-31) Anion Gap 16 mEq/L mEq/L (8-16) BUN 13 mg/dL mg/dL (7-23) Creatinine 0.7 mg/dL mg/dL (0.6-1.0) Estimated GFR > 60 Glucose 125 mg/dL H mg/dL (70-100) Calcium 9.2 mg/dL mg/dL (8.5-10.4) Total Bilirubin 0.6 mg/dL mg/dL (0.1-1.4) AST 18 IU/L IU/L (14-46) ALT 25 IU/L IU/L (9-52) Alkaline Phosphatase 82 IU/L IU/L (38-126) Troponin I < 0.012 ng/mL ng/mL (0.000-0.034) Total Protein 7.0 g/dL g/dL (6.3-8.2) Albumin 4.6 g/dL g/dL (3.5-5.0) TSH 0.669 uIU/mL uIU/mL (0.465-4.680) Medications Given: Discontinued Medications Dexamethasone (Decadron Injection) 8 mg IVP EDNOW ONE Stop: 06/27/17 13:06 Last Admin: 06/27/17 13:16 Dose: 8 mg Diazepam (Valium) 5 mg IVP EDNOW ONE Stop: 06/27/17 14:12 Last Admin: 06/27/17 14:26 Dose: 5 mg Hydromorphone HCl (Dilaudid) 1 mg IVP EDNOW ONE Stop: 06/27/17 14:12 Last Admin: 06/27/17 14:26 Dose: 1 mg Sodium Chloride (Ns) 1,000 mls @ 0 mls/hr IV EDNOW ONE; Wide Open PRN Reason: Protocol Stop: 06/27/17 12:52 Last Admin: 06/27/17 13:16 Dose: 1,000 mls Lorazepam (Ativan Injection) 1 mg IVP EDNOW ONE Stop: 06/27/17 13:06 Last Admin: 06/27/17 13:16 Dose: 1 mg Departure - Departure Disposition: Home, Routine, Self-Care Clinical Impression: Racing heart beat, Sinus tachycardia by electrocardiogram, Chronic neck pain, Chronic prescription opiate use Condition: Good Instructions: Heart Palpitations (ED), Holter Monitoring (ED) Additional Instructions: If symptoms continue to persist, follow up with Cardiology in 7-10 days to discuss candidacy for Holter monitor. Return to the ER immediately if you experience new, continued or worsened chest pain, chest pain that radiates, chest pain accompanied by exertion or associated with shortness of breath, sweating, nausea, dizziness, back pain, or any other symptoms that concerns you. Follow-Up: Please follow-up as noted above. Follow up sooner if your condition worsens or if you develop any new problems Call as soon as possible for an appointment. Be clear when you call for an appointment that this is an Emergency Department follow-up. Contact the Emergency Department if you are having trouble arranging follow up care. Our referrals are not based on your insurance network. When time allows, contact your insurance carrier to verify the referral physician is in your plan. If not, get a referral for an in-network architect manager. Please ask us if you have any questions. Referrals: Zainab Lau MD [Primary Care Provider] - As per Instructions Soniya Colunga MD [Medical Doctor] - As per Instructions Prescriptions: Cyclobenzaprine [Flexeril 10 MG (*)] 10 mg PO TID PRN #15 tab PRN Reason: Spasms Lidocaine [Lidoderm] 1 each TP Q12 PRN #6 adh..patch PRN Reason: Pain, Moderate oxyCODONE/APAP 5/325 [Percocet 5/325 (*)] 1 - 2 tab PO Q4H PRN #10 tab PRN Reason: Pain, Severe
[2017-06-27 12:57] LABS: PLATELET COUNT 453 10^3/uL (150-400)
[2017-06-27] MEDS ORDERED: DEXAMETHASONE 10 MG/ML VIAL IVP ONE (13:05)
[2017-06-27] MEDS ORDERED: LORazepam 2 MG/ML INJ IVP ONE (13:05)
[2017-06-27] MEDS ORDERED: DIAZEPAM 5 MG/ML 1 ML SYR IVP ONE (14:11)
[2017-06-27] MEDS ORDERED: HYDROmorphONE/DILAUDID 2 MG/ML INJ IVP ONE (14:11)
[2017-06-27 14:27] VITALS: RESP 16
[2017-06-27 15:29] VITALS: BP 120/87; PULSE 90; O2SAT 94
== END 2017-06-27 15:27 | disposition home or self-care (01) ==
DX: R00.0 Tachycardia, unspecified (principal); M54.2 Cervicalgia; G89.29 Other chronic pain; F11.90 Opioid use, unspecified, uncomplicated; E86.9 Volume depletion, unspecified; Z87.891 Personal history of nicotine dependence
CPT/HCPCS: 96374; J1100; J1170; J2060; J3360

== ENCOUNTER 2017-08-01 16:25 | Emergency (ER) | payer MEDICAID ==
--- NOTE | 2017-08-01 16:27 | EDPHY ---
H & P - Medical/Surgical History Hx Asthma: No Hx Chronic Respiratory Disease: No Hx Diabetes: No Hx Cardiac Disease: No Hx Renal Disease: No Hx Cirrhosis: No Hx Alcoholism: No Hx HIV/AIDS: No Hx Splenectomy or Spleen Trauma: No Other PMH: pmh- chronic pain, bipolar, depression. psh- ortho - Social History Smoking Status: Former smoker Time Seen by Provider: 08/01/17 16:26 Constitutional: Initial Vital Signs Temperature (C) 37.2 C 08/01/17 16:32 Heart Rate 95 08/01/17 16:32 Respiratory Rate 18 08/01/17 16:32 Blood Pressure 162/104 H 08/01/17 16:32 O2 Sat (%) 94 08/01/17 16:32 O2 Delivery Mode Room Air Allergies/Adverse Reactions: No Known Allergies Allergy (Verified 08/01/17 16:31) Home Medications: Medication Instructions Recorded Cephalexin [Keflex (RX)] 500 mg PO TID #30 cap 08/01/17 Hydrocodone/APAP 5/325 [Zenda 1 - 2 each PO Q4-6PRN PRN #20 tab 08/01/17 5/325] Medical Decision Making Procedures: Procedure: Laceration repair. I was requested by Dr. Hamm to perform wound closure I explained the indications, risks and benefits for both laceration repair and anesthetic administration. Verbal consent was obtained from the patient. The laceration on the right middle finger was anesthetized using 0.5% bupivicaine without epinephrine digital nerve block. After anesthetic administered the patient was observed for a period of time and had no apparent adverse effects. The wound was cleaned, prepped, draped in normal sterile fashion and explored to its base. No foreign body seen, no foreign bodies palpated. The nail was removed, revealing a transverse nail bed laceration which is closed with 5 simple interrupted 5 0 Vicryl sutures. The skin is closed with 9 simple interrupted 5 O Prolene sutures. The nail is replaced. Patient tolerated procedure well. Wound repair is s complex. (Clemencia Thakkar) ED Course/Re-evaluation: CHIEF COMPLAINT: Right middle finger partial amputation HISTORY OF PRESENT ILLNESS: This patient is a 57 year old female presenting with a partial right middle finger amputation. She accidentally slammed her finger in her house door this evening while letting her dogs out. She does not take any anticoagulants. She has no further complaints and denies any other injuries. REVIEW OF SYSTEMS: A 10 point review of systems was performed and is negative with the exception of the elements mentioned in the history of present illness. PHYSICAL EXAM: HR, BP, O2 Sat, RR. Temp noted General Appearance: Alert, well hydrated, appropriate, and non-toxic appearing. Head: Atraumatic without scalp tenderness or obvious injury Eyes: Pupils equal, round, reactive to light and accommodation, EOMI, no trauma , no injection. Throat: Mucus membranes moist. Neck: Supple, nontender, no lymphadenopathy. Respiratory: No retractions, no distress, no wheezes, and no accessory muscle use. Lungs are clear to auscultation bilaterally. Cardiovascular: Regular rate and rhythm, no murmurs, rubs, or gallops. Bilateral carotid, radial, dorsalis pedis, and posterior tibial pulses intact. Good capillary refill all extremities. Gastrointestinal: Abdomen is soft, nontender, non-distended, no masses, no rebound, no guarding, no peritoneal signs. Musculoskeletal: Laceration and deformity to right middle finger with nail bed involvement. Normal active ROM of all extremities. Neurological: Alert, appropriate, and interactive. Nonfocal neuro exam. Skin: No rashes, good turgor, no nodules on palpation. Past medical history: Chronic pain, depression Past surgical history: Orthopedic Family history: Noncontributory. Social history: Single. Lives in [place]. Does not abuse tobacco or alcohol. DIAGNOSTICS/PROCEDURES/CRITICAL CARE TIME: See procedure note above. DIFFERENTIAL DIAGNOSIS: Includes but not limited to partial amputation, laceration, contusion, nail bed injury, fracture. MEDICAL DECISION [id number] y/o female presets with an injury to her right middle finger secondary to accidentally slamming it in a door. Plan for x-ray for further evaluation. Administered lidocaine with epinephrine for numbing per standard ED protocol. 16:50 Reviewed right hand x-ray. Evidence of tuft fracture of the middle finger , likely nail bed involvement. Patient continues to complain of pain to the finger. Plan for repeat numbing injection. CHRIS Russell, will perform laceration repair. See procedure note. Patient tolerated repair well. Plan to administer 500mg PO Keflex for infection prevention. Plan to discharge the patient home in good condition with referral to a hand specialist. Prescription for Keflex and Zenda provided. Return precautions discussed. She is comfortable with this plan. (Dada Hamm) - Data Points Medications Given: Discontinued Medications Cephalexin HCl (Keflex) 500 mg PO EDNOW ONE PRN Reason: Protocol Stop: 08/01/17 16:55 Last Admin: 08/01/17 16:57 Dose: 500 mg Departure - Departure Disposition: Home, Routine, Self-Care Clinical Impression: Finger fracture, right Qualifiers: Encounter type: initial encounter Finger: middle finger Fracture type: open Phalanx: middle Fracture alignment: displaced Qualified Code(s): S62.622B - Displaced fracture of middle phalanx of right middle finger, initial encounter for open fracture Laceration of finger nail bed Qualifiers: Encounter type: initial encounter Qualified Code(s): S61.319A - Laceration without foreign body of unspecified finger with damage to nail, initial encounter Laceration of finger Qualifiers: Encounter type: initial encounter Finger: middle finger Damage to nail status: with damage Foreign body presence: without foreign body Laterality: right Qualified Code(s): S61.312A - Laceration without foreign body of right middle finger with damage to nail, initial encounter Condition: Good Instructions: Cephalexin (By mouth), Hydrocodone/Acetaminophen (By mouth), Care For Your Stitches (ED), Care For Your Stitches (DC), Finger Fracture (ED) Additional Instructions: 1. Take Keflex as prescribed. 2. Take Zenda as prescribed as needed for pain. 3. Follow up with a hand specialist this week for further evaluation. 4. Return to the Emergency Department for fever, redness, discharge from wound, increasing pain or other worsening of condition. Referrals: Patient,NotPresent [Unknown] - As per Instructions Chris Bear MD [Medical Doctor] - As per Instructions Prescriptions: Cephalexin [Keflex (RX)] 500 mg PO TID #30 cap Hydrocodone/APAP 5/325 [Zenda 5/325] 1 - 2 each PO Q4-6PRN PRN #20 tab PRN Reason: Pain, Moderate Report Scribed for: Dada Hamm Report Scribed by: Smiley Diana Date of Report: 08/01/17 Time of Report: 16:54
[2017-08-01] MEDS ORDERED: CEPHALEXIN 500 MG CAP PO ONE (16:54)
[2017-08-01] MEDS ORDERED: HYDROCOD/APAP 5/325 PREPACK#6 BTL TAKEHOME ONE ×2 (18:22→18:27)
[2017-08-01 18:28] VITALS: BP 122/76
== END 2017-08-01 18:40 | disposition home or self-care (01) ==
LOC: EDUNIT#
PROC: 0HQQXZZ Repair Finger Nail, External Approach (ICD-10-PCS; principal; 2017-08-01)
DX: S62.622B Displaced fracture of middle phalanx of right middle finger, initial encounter for open fracture (principal); S61.312A Laceration without foreign body of right middle finger with damage to nail, initial encounter; Z87.891 Personal history of nicotine dependence; W23.0XXA Caught, crushed, jammed, or pinched between moving objects, initial encounter; Y92.009 Unspecified place in unspecified non-institutional (private) residence as the place of occurrence of the external cause

== ENCOUNTER 2017-08-16 10:13 | Emergency (ER) | payer MEDICAID ==
--- NOTE | 2017-08-16 10:35 | CPEKG ---
Heart Rate: 84 RR Interval: 714 P-R Interval: 140 QRSD Interval: 76 QT Interval: 392 QTC Interval: 464 P Norris: 45 QRS Norris: -24 T Wave Norris: 45 EKG Severity - ABNORMAL ECG - EKG Impression: SINUS RHYTHM EKG Impression: CONSIDER LEFT VENTRICULAR HYPERTROPHY Electronically Signed By: Dada Hamm 16-Aug-2017 11:07:22
[2017-08-16] MEDS ORDERED: ASPIRIN 81 MG CHEWABLE TAB PO ONE (10:37)
--- NOTE | 2017-08-16 10:47 | EDPHY ---
H & P Stated Complaint: mid sternal cp similar episode 6 wks ago dx anxiety Time Seen by Provider: 08/16/17 10:31 HPI/ROS: CHIEF COMPLAINT: Epigastric, chest pain since 1:00 a.m. HISTORY OF PRESENT ILLNESS: 57-year-old female drove to the ER complaining of awaking with with chest pain and epigastric discomfort since 1:00 a.m. today with associated anxiety. No radiation. No dyspnea. No nausea or vomiting. No diaphoresis. No chest pain with exertion or dyspnea with exertion. REVIEW OF SYSTEMS: A ten point review of systems was performed and is negative with the exception of the items mentioned in the HPI PAST MEDICAL & SURGICAL HISTORY: Anxiety. Bipolar disorder. Depression. Chronic pain. Opiate dependence. SOCIAL HISTORY:Denies acute alcohol or drug use . Non tobacco smoker PHYSICAL EXAM (Prior to examination, patient consented to physical exam, hands were washed and my usual and customary physical exam procedures followed) 1) GENERAL: Well-developed, well-nourished, alert and oriented. Appears anxious. Tremulous.. 2) HEAD: Normocephalic, atraumatic 3) HEENT: Pupils equal, round, reactive to light bilaterally. Sclera anicteric. Nasopharynx, oropharynx, clear, no lesions. 4) NECK: Full range of motion, no meningeal signs. 5) LUNGS: Clear auscultation bilaterally, no wheezes, no rhonchi, no retractions. 6) HEART: Regular rate and rhythm, no murmur, no heave, no gallop. 7) ABDOMEN: No guarding, no rebound, no focal tenderness, negative McBurney's, negative Ribeiro's, negative Rovsing's, negative peritoneal sign, no palpable or pulsatile mass. 8) MUSCULOSKELETAL: Moving all extremities, no focal areas of tenderness, no obvious trauma. No peripheral edema or discoloration. 9) BACK: No CVA tenderness, no midline vertebral tenderness, no fluctuance, no step-off, no obvious trauma, no visual or palpable abnormality. 10) SKIN: No rash, no petechiae. 11) Psychiatric: Patient is oriented X 3, there is no agitation. DIFFERENTIAL DIAGNOSIS: In no particular order, including but not limited to biliary colic, acute anxiety, MO, cholecystitis, peptic ulcer disease, pancreatitis, and gastroenteritis. This is a partial list of diagnoses considered. These considerations are based on history, physical exam, past history and reassessment. - Personal History Current Tetanus/Diphtheria Vaccine: Yes - Medical/Surgical History Hx Asthma: No Hx Chronic Respiratory Disease: No Hx Diabetes: No Hx Cardiac Disease: No Hx Renal Disease: No Hx Cirrhosis: No Hx Alcoholism: No Hx HIV/AIDS: No Hx Splenectomy or Spleen Trauma: No Other PMH: pmh- chronic pain, bipolar, depression. psh- ortho - Social History Smoking Status: Former smoker Constitutional: Initial Vital Signs Temperature (C) 36.7 C 08/16/17 10:17 Heart Rate 107 H 08/16/17 10:17 Respiratory Rate 22 H 08/16/17 10:17 Blood Pressure 118/92 H 08/16/17 10:17 O2 Sat (%) 96 08/16/17 10:17 O2 Delivery Mode Room Air Allergies/Adverse Reactions: No Known Allergies Allergy (Verified 08/16/17 10:15) Home Medications: Medication Instructions Recorded LORazepam [Ativan 1 mg (RX)] 1 mg PO Q6 PRN #4 tab 08/16/17 Oxycodone HCl 08/16/17 Seroquel 08/16/17 Wellbutrin 100mg (*) 08/16/17 Medical Decision Making ED Course/Re-evaluation: 10:40 a.m.: I reviewed the patient's old medical records, discussed case with secondary supervising physician Dr. Dada Hamm in the ER. The patient appears anxious, she is tremulous. Will administer IV Ativan and obtain cardiac evaluations studies including lipase given her complaints of epigastric discomfort. 12:40 p.m.: Patient has negative troponin. This is the patient's 2nd emergency department visit for complaints of chest pain within the past 2 months. I think the patient would benefit from further cardiology consultation and treadmill testing. Consultation with Cardiology Dr. Mynor Martinez who recommends exercise treadmill testing today prior to discharge from the ER. 4:00 p.m.: Patient complaining of recurrent anxiety, given further dose of Ativan 4:20 p.m.: I spoke with Cardiology CHRIS Bolanos who informs me that the patient' s treadmill testing was negative 4:28 p.m.: Spoke with radiologist Dr. Arnaldo Goetz who reviewed the patient's nuclear medicine study which is negative. Patient has been re-evaluated with serial exams. She has had no complaints of chest pain or the ER. I think the patient can be discharged as I think that acute cardiac etiology for the patient's symptoms is less than likely. Patient has been given usual and customary precautions and instructions regarding her symptoms. - Data Points Laboratory Results: Laboratory Results 08/16/17 10:45 08/16/17 10:45 Medications Given: Discontinued Medications Aspirin (Aspirin) 324 mg PO EDNOW ONE Stop: 08/16/17 10:38 Last Admin: 08/16/17 11:01 Dose: 324 mg Ketorolac Tromethamine (Toradol) 15 mg IVP EDNOW ONE Stop: 08/16/17 12:44 Last Admin: 08/16/17 13:00 Dose: 15 mg Lorazepam (Ativan Injection) 1 mg IVP EDNOW ONE Stop: 08/16/17 10:38 Last Admin: 08/16/17 13:01 Dose: 1 mg Lorazepam (Ativan Injection) 1 mg IVP EDNOW ONE Stop: 08/16/17 12:44 Last Admin: 08/16/17 13:09 Dose: 1 mg Lorazepam (Ativan Injection) 1 mg IVP EDNOW ONE Stop: 08/16/17 16:11 Last Admin: 08/16/17 16:13 Dose: 1 mg Departure - Departure Disposition: Home, Routine, Self-Care Clinical Impression: Epigastric abdominal pain Chest pain Qualifiers: Chest pain type: other chest pain Qualified Code(s): R07.89 - Other chest pain ; R07.8 - Other chest pain Condition: Good Instructions: Chest Pain (ED), Acute Abdominal Pain (ED) Additional Instructions: Distal return to the ER if you develop new or return of chest pain, if you develop shortness of breath, or any other symptoms that concern you. Referrals: Zainab Lau MD [Primary Care Provider] - 1-2 days without fail Mynor Martinez MD [Medical Doctor] - 1-2 days without fail Prescriptions: LORazepam [Ativan 1 mg (RX)] 1 mg PO Q6 PRN #4 tab PRN Reason: Anxiety
[2017-08-16 10:51] LABS: PLATELET COUNT 354 10^3/uL (150-400)
[2017-08-16] MEDS: LORazepam 2 MG/ML INJ IVP ONE ×2 (11:01→13:01)
[2017-08-16] MEDS ORDERED: LORazepam 2 MG/ML INJ IVP ONE ×2 (12:43→16:10)
[2017-08-16] MEDS ORDERED: KETOROLAC 15 MG/1 ML SDV IVP ONE (12:43)
[2017-08-16 17:18] VITALS: BP 128/62
--- NOTE | 2017-08-16 17:30 | CPR ---
[f rep st] NONINVASIVE CARDIAC PROCEDURE REPORT DATE OF PROCEDURE: 08/16/2017 CARDIOPULMONARY REPORT. PROCEDURE: Exercise nuclear stress test. INDICATION: The patient is a 57-year-old female with a history of anxiety who presented to the [facility] complaining of chest pain. She awoke at 1 a.m. complaining of chest discomfort and a pounding se nsation in her chest. This persisted until she presented to the hospital. She denies any history of hypertension, hyperlipidemia, diabetes, tobacco use, or family history of premature coronary artery disease. DESCRIPTION OF PROCEDURE: Consent was obtained and the patient was placed on continuous telemetry. Her resting EKG revealed normal sinus rhythm. The patient exercised on the treadmill for 6 minutes. She complained of chest discomfort prior to exercise which persisted throughout her test. Her disco mfort did not increase with exercise. She remained in normal sinus rhythm with nonspecific upsloping ST depression with exertion. In the recovery phase she had 1 couplet. Her blood pressure at rest w as 118/70, and peaked at 130/70. Her blood pressure returned to baseline within 5 minutes of recover y. PLAN: Minimal ST upsloping ST depression in the lateral leads. Await nuclear images. /[id number]/MODL
== END 2017-08-16 17:16 | disposition home or self-care (01) ==
DX: R07.89 Other chest pain (principal); Z87.891 Personal history of nicotine dependence
CPT/HCPCS: 71046; 78452; 93005; 93017; 96374; 96375; 96376; 99285; A9500; J1885; J2060

== ENCOUNTER 2017-09-19 09:26 | Emergency (ER) | payer MEDICAID ==
--- NOTE | 2017-09-19 09:51 | EDPHY ---
Addendum entered and electronically signed by Mackenzie Lee PAC 09/19/17 16:31: Addendum: Mental health recommends discharge home with outpatient follow-up with Psychiatry, Dr. Sims. They recommend that Zyprexa 10 mg daily would be ineffective treatment addition. No additional Ativan prescription given from the emergency room. Original Note: H & P Stated Complaint: anxiety Source: Patient Exam Limitations: No limitations - Personal History Current Tetanus/Diphtheria Vaccine: Yes Current Tetanus Diphtheria and Acellular Pertussis (TDAP): Yes - Medical/Surgical History Hx Asthma: No Hx Chronic Respiratory Disease: No Hx Diabetes: No Hx Cardiac Disease: No Hx Renal Disease: No Hx Cirrhosis: No Hx Alcoholism: No Hx HIV/AIDS: No Hx Splenectomy or Spleen Trauma: No Other PMH: pmh- chronic pain, bipolar, depression. psh- ortho - Social History Smoking Status: Former smoker Time Seen by Provider: 09/19/17 09:50 HPI/ROS: HPI: This is a 57-year-old female who presents with Chief Complaint: Anxiety, racing thoughts Location:psych Quality: Anxiety, racing thoughts Duration: 4 days Signs and Symptoms: No suicidal ideation, no homicidal ideation, no auditory hallucinations, no visual hallucinations, + insomnia Timing: Acute on chronic Severity: Moderate to severe Context: Patient has a history of bipolar disorder, depression takes Lamictal, Seroquel and Ativan presents with rapidly worsening 4 day history of racing thoughts, insomnia, difficulty performing activities of daily living. She reports that she feels that she is having a manic episode. Her psychiatrist is Dr. Sims. She also reports after further questioning that she had benzodiazepine overuse and had 1 point was taking 30 mg of Valium per day. This was totally taper down and she was off of all benzodiazepines earlier in the year. Due to her anxiety, Dr. Sims 1st started her on a low dose of Ativan 1 mg daily as needed approximately 4 weeks ago. Lives with a roommate has dog. Patient is tearful when talking about her current situation. She does not feel safe to go home at this point. Admits to marijuana use. Denies alcohol use. Modifying Factors: Regular psych meds Comment: ROS: see HPI Constitutional: No fever, no chills, no weight loss Eyes: No blurred vision Respiratory: No shortness of breath, no cough Cardiovascular: No chest pain Gastrointestinal: No nausea, no vomiting, no diarrhea Genitourinary: No dysuria Extremities: No myalgias Neurologic: No weakness, no numbness Skin: No rashes Hematologic: No bruising, no bleeding MEDICAL/SURGICAL/SOCIAL HISTORY: pmh- chronic pain, bipolar, depression, marijuana use psh- orthopedic procedures Social history: Former smoker. Family history noncontributory. CONSTITUTIONAL: awake and alert, no obvious distress HEENT: Atraumatic and normocephalic, PERRL, EOMI. Nares patent; no rhinorrhea; no nasal mucosal edema. Tympanic membranes clear. Oropharynx clear, no exudate and moist pink mucosa. Airway patent. No lymphadenopathy. No meningismus. Cardiovascular: Normal S1/S2, regular rate, regular rhythm, without murmur rub or gallop. PULMONARY/CHEST: Symmetrical and nontender. Clear to auscultation bilaterally. Good air movement. No accessory muscle usage. ABDOMEN: Soft, nondistended, nontender, no rebound, no guarding, no peritoneal signs, no masses or organomegaly. No CVAT. EXTREMITIES: 2/2 pulses, strength 5/5, no deformities, no clubbing, no cyanosis or edema. NEUROLOGICAL: no focal neuro deficits. GCS 15. SKIN: Warm and dry, no erythema. no rash. Good capillary refill. PSYCH: Good eye contact, + flight of ideas, +organized thought process, fair insight and judgment, no auditory and visual hallucinations, no suicidal ideation with a plan, no homicidal ideation, not paranoid (Rosa,Terra) Constitutional: Initial Vital Signs Temperature (C) 36.6 C 09/19/17 09:33 Heart Rate 87 09/19/17 09:33 Respiratory Rate 20 09/19/17 09:33 Blood Pressure 182/101 H 09/19/17 09:33 O2 Sat (%) 98 09/19/17 09:33 O2 Delivery Mode Room Air Allergies/Adverse Reactions: No Known Allergies Allergy (Verified 09/19/17 09:33) Home Medications: Medication Instructions Recorded LORazepam [Ativan 1 mg (RX)] 1 mg PO Q6 PRN #4 tab 08/16/17 Oxycodone HCl 08/16/17 Seroquel 08/16/17 Wellbutrin 100mg (*) 08/16/17 Medical Decision Making ED Course/Re-evaluation: Patient is suffering from bipolar disorder with manic episode without psychosis. Labs and UDS ordered. Mental health evaluation given Zyprexa 5 mg. This is voluntary at this point and will not place patient on M1 hold as she has good outpatient follow-up with Dr. Sims. 1040: Notified by nursing that patient has Medicaid so will be EPS evaluation. 1119: Notified by nurse that urine has been sent to the lab. Patient has chronic pain and takes oxycodone at 11:00 a.m. And 3:00 p.m. every day. Oxycodone immediate release 5 mg ordered. 1148: Urine drug screen is positive for marijuana. Interestingly she takes Ativan and oxycodone but no opiates or benzodiazepines are resulted in her urine. Medically clear for mental health evaluation. 1205: EPS called. Ethanol level ordered per EPS request. 1215: Notified by nurse that patient is requesting Ativan for her anxiety. 1250: Ethanol Level is negative. 1300: Notified by nurse that patient is requesting 1 mg Ativan; order written. 1455: Spoke with mental health commercial loan specialist prior to evaluation. 1700: End of shift. Signed over to Dr. Yen pending mental health evaluation and final disposition. This patient was seen under the supervision of my secondary supervising physician. I evaluated care for this patient independently. Discussed this patient with Dr. Plasencia. (Mackenzie Lee) Differential Diagnosis: Differential diagnosis includes but is not limited to bipolar disorder, manic episode, psychosis, benzodiazepine overuse, benzodiazepine withdrawal. (Mackenzie Lee) Other Provider: Bipolar with severe anxiety, signed out to Yovana at 1500 with psych evaluation pending. (Jovon Plasencia) - Data Points Laboratory Results: Laboratory Results 09/19/17 10:20 09/19/17 10:20 09/19/17 09/19/17 09/19/17 11:00 10:20 10:20 WBC RBC Hgb Hct MCV MCH MCHC RDW Plt Count MPV Neut % (Auto) Lymph % (Auto) Bartholomew % (Auto) Eos % (Auto) Baso % (Auto) Nucleat RBC Rel Count Absolute Neuts (auto) Absolute Lymphs (auto) Absolute Monos (auto) Absolute Eos (auto) Absolute Basos (auto) Absolute Nucleated RBC Immature Gran % Immature Gran # Sodium 139 mEq/L mEq/L (135-145) Potassium 4.5 mEq/L mEq/L (3.3-5.0) Chloride 102 mEq/L mEq/L (97-110) Carbon Dioxide 24 mEq/l mEq/l (22-31) Anion Gap 13 mEq/L mEq/L (8-16) BUN 15 mg/dL mg/dL (7-23) Creatinine 0.7 mg/dL mg/dL (0.6-1.0) Estimated GFR > 60 Glucose 114 mg/dL H mg/dL (70-100) Calcium 9.9 mg/dL mg/dL (8.5-10.4) Beta HCG, Qual NEGATIVE Urine Opiates Screen NEGATIVE (NEGATIVE) Urine Barbiturates NEGATIVE (NEGATIVE) Ur Phencyclidine Scrn NEGATIVE (NEGATIVE) Ur Amphetamine Screen NEGATIVE (NEGATIVE) U Benzodiazepines Scrn NEGATIVE (NEGATIVE) Urine Cocaine Screen NEGATIVE (NEGATIVE) U Marijuana (THC) Screen NON-NEGATIVE H (NEGATIVE) Ethyl Alcohol 09/19/17 09/19/17 10:20 10:00 WBC 6.79 10^3/uL 10^3/uL (3.80-9.50) RBC 4.62 10^6/uL 10^6/uL (4.18-5.33) Hgb 14.4 g/dL g/dL (12.6-16.3) Hct 41.7 % % (38.0-47.0) MCV 90.3 fL fL (81.5-99.8) MCH 31.2 pg pg (27.9-34.1) MCHC 34.5 g/dL g/dL (32.4-36.7) RDW 12.6 % % (11.5-15.2) Plt Count 391 10^3/uL 10^3/uL (150-400) MPV 8.9 fL fL (8.7-11.7) Neut % (Auto) 65.6 % % (39.3-74.2) Lymph % (Auto) 25.3 % % (15.0-45.0) Bartholomew % (Auto) 7.7 % % (4.5-13.0) Eos % (Auto) 0.6 % % (0.6-7.6) Baso % (Auto) 0.7 % % (0.3-1.7) Nucleat RBC Rel Count 0.0 % % (0.0-0.2) Absolute Neuts (auto) 4.45 10^3/uL 10^3/uL (1.70-6.50) Absolute Lymphs (auto) 1.72 10^3/uL 10^3/uL (1.00-3.00) Absolute Monos (auto) 0.52 10^3/uL 10^3/uL (0.30-0.80) Absolute Eos (auto) 0.04 10^3/uL 10^3/uL (0.03-0.40) Absolute Basos (auto) 0.05 10^3/uL 10^3/uL (0.02-0.10) Absolute Nucleated RBC 0.00 10^3/uL 10^3/uL (0-0.01) Immature Gran % 0.1 % % (0.0-1.1) Immature Gran # 0.01 10^3/uL 10^3/uL (0.00-0.10) Sodium Potassium Chloride Carbon Dioxide Anion Gap BUN Creatinine Estimated GFR Glucose Calcium Beta HCG, Qual Urine Opiates Screen Urine Barbiturates Ur Phencyclidine Scrn Ur Amphetamine Screen U Benzodiazepines Scrn Urine Cocaine Screen U Marijuana (THC) Screen Ethyl Alcohol < 10 mg/dL mg/dL (0-10) Medications Given: Discontinued Medications Lorazepam (Ativan) 1 mg PO EDNOW ONE Stop: 09/19/17 13:10 Last Admin: 09/19/17 13:09 Dose: 1 mg Lorazepam (Ativan) 1 mg PO ONCE ONE Stop: 09/19/17 13:10 Last Admin: 09/19/17 13:09 Dose: Not Given Olanzapine (Zyprexa Zydis) 5 mg PO EDNOW ONE Stop: 09/19/17 10:12 Last Admin: 09/19/17 10:25 Dose: 5 mg Oxycodone HCl (Oxycodone Ir) 5 mg PO EDNOW ONE Stop: 09/19/17 11:20 Last Admin: 09/19/17 11:21 Dose: 5 mg Departure - Departure Clinical Impression: Bipolar affective, manic, severe
[2017-09-19] MEDS ORDERED: OLANZapine DISINTEGR 5 MG TAB PO ONE (10:11)
[2017-09-19 10:32] LABS: PLATELET COUNT 391 10^3/uL (150-400)
[2017-09-19] MEDS ORDERED: OLANZapine 5 MG TAB ONE (10:57)
[2017-09-19] MEDS ORDERED: oxyCODONE IR 5 MG TAB PO ONE (11:19)
[2017-09-19] MEDS ORDERED: LORazepam 1 MG TAB ONE (13:07)
[2017-09-19] MEDS ORDERED: LORazepam 1 MG TAB PO ONE ×2 (13:09)
--- NOTE | 2017-09-19 13:11 | ASMTCMCOM ---
CM Note CM Note Notes: [facility] contacted [facility] to confirm that this is a Medicaid Pt. [employer] confirmed this. Pt is med cleared and [facility] will send someone to evaluate her. Date Signed: 09/19/2017 01:11 PM Electronically Signed By:Vernell Spencer
[2017-09-19 16:40] VITALS: BP 122/95
== END 2017-09-19 16:40 | disposition home or self-care (01) ==
DX: F31.2 Bipolar disorder, current episode manic severe with psychotic features (principal); Z87.891 Personal history of nicotine dependence
CPT/HCPCS: 80305; G0480

== ENCOUNTER 2017-11-29 14:45 | Day surgery (SDC) | payer MEDICAID ==
--- NOTE | 2017-11-29 10:39 | GHP ---
[f rep st] PREOP HISTORY AND PHYSICAL DATE OF ADMISSION: 11/29/2017 CHIEF COMPLAINT: Left shoulder pain. HISTORY OF PRESENT ILLNESS: The patient is a pleasant 57-year-old left-hand- dominant female who presents today for an evaluation of left shoulder injury. She states that she initially injured her left shoulder slipping while getting out of a bathtub, does not recall specific ROLANDA. This occurred on 11/17/2017, and she was subsequently seen by her primary care physician, and referred to [facility] for radiographs, which showed a distal clavicle fracture. At that time, the patient was placed in a simple shoulder mobilizer, is here for orthopedic special evaluation. Today, she notes continued swelling and discoloration of left shoulder, and notes that her current pain is 9/10 with exacerbation, but notes a decreased pain at rest. She notes that she is not currently taking medications to manage her left shoulder pain, but does note that she takes medication for chronic pain. She notes no new-onset numbness and tingling, as well as denies any subsequent injury to her left shoulder or clavicle. She has no additional concerns or complaints at this time. PAST MEDICAL HISTORY: This is significant for history of bipolar disorder, chronic foot pain, which is being treated by Dr. Sims, as well as chronic neck pain, which was previously managed by Kelsea Sears in pain management, and is currently managed by Dr. Hu at [facility]. The patient denies any additional significant past medical history. PAST SURGICAL HISTORY: This is significant for right shoulder rotator cuff repair performed by Dr. Camacho in 1999, as well as a cervical spine fusion, C2- C3 performed in 2003, and C3 to C7 performed by Dr. Hale in 2014. She notes continued chronic pain from this issue. CURRENT MEDICATIONS: The patient notes her current medications include Wellbutrin, Lamictal, Seroquel, Celebrex, oxycodone, OxyContin, Suboxone. The patient notes no additional current medication or supplement use. ALLERGIES: The patient states no known drug allergies, as well as denies any allergies to metals. SOCIAL HISTORY: Patient denies any current tobacco use, but does state she is a former smoker. Patient denies any recreational drug use, or current alcohol consumption. She notes that she is retired and not currently working. She sees a Dr. Zainab Lau as her primary care provider. FAMILY HISTORY: This is significant for a history of lung cancer in the patient 's mother. No additional contributory family history is reported today. REVIEW OF SYSTEMS: An 11-point review of systems is positive for insomnia, history of pneumonia, history of chronic back pain, as well as depression, anxiety and bipolar disorder as listed above. The remainder of the ROS is otherwise negative for any additional concerns, complaints or abnormal findings not noted in the HPI or PMH. PHYSICAL EXAMINATION: VITAL SIGNS: Height is 5 feet 5 inches. Weight is 120 pounds. GENERAL: Healthy-appearing female, NAD. Pleasant and cooperative with today's exam. HEENT: EOMI, PERRLA. Ears and nares are patent without discharge. NC/AT. NECK: Normal in appearance with a midline trachea. LUNGS: Chest motion appears normal. Respirations are nonlabored. SKIN: Warm and dry. Please see [facility]K for additional documentation regarding left shoulder. NEUROLOGICAL: Appears alert and oriented to person, place and time. Speech fluid and fluent. PSYCHIATRIC: Affect normal. Pleasant and cooperative with exam. MUSCULOSKELETAL: The left shoulder reveals TTP over the distal clavicle and AC joint. This is with a slightly raised appearance. Active ROM of the left shoulder is deferred due to fracture status. No significant swelling is noted today, though significant ecchymotic changes are noted inferiorly to the fracture site, and around the axilla. Patient has intact to light touch sensation of the deltoid, anterior to posterior. Upper arm compartments are supple. Elbow, wrist and hand examinations are benign. Patient has intact to light touch sensation distally, as well as in the median, radial and ulnar nerve distributions. Patient's radial and ulnar pulses are intact and equal compared bilaterally. Capillary refill is less than 2 seconds in the finger pulps. Patient is in simple shoulder mobilizer, is neurovascularly intact with application. DNVI BUE. RADIOGRAPHS: Two views of the left clavicle are reviewed today showing a distal clavicle fracture, displaced. ASSESSMENT: Left shoulder acromioclavicular separation (ICD 10: S43.52XA), left distal clavicle fracture, displaced (ICD 10: S42.022A). PLAN: This patient's case and radiographs were discussed with Dr. Valladares in the office, who assisted on exam of the patient. At this time, given the significant displacement of the distal clavicle, and the activity level of the patient, Dr. Valladares has recommended surgical intervention including a left acromioclavicular joint reconstruction, as well as a distal clavicle resection. After a discussion of the risks and benefits of the surgical intervention, the patient has decided to proceed with the above procedure. Procedure is tentatively scheduled for 11/29/2017, and will be performed by Dr. Valladares at [facility]. A signed informed consent was obtained, and a recuperative timeline was discussed with the patient. All necessary paperwork for [facility] was completed, and electronic orders were entered into the [employer] system. As the patient has chronic pain, I have reached out to Dr. Hu's office for postoperative pain management, which their office will provide for the patient perioperatively, as well as manage all postoperative medications at this time. At this time, the patient will follow up with us 10-14 days postoperatively, tentatively scheduled for 2017, in our [place] office for postoperative evaluation, and is advised to follow up sooner with any additional concerns or complaints. All the patient's questions have been answered today, and her concerns addressed. She has relayed understanding of the current care plan and education presented today. It remains my pleasure to assist in the care of this patient. /[id number]/MODL MTDD
[2017-11-29] MEDS ORDERED: ceFAZolin 2 GM/DEXTROSE 100 ML IV ONE (14:59)
[2017-11-29] MEDS ORDERED: LR 1,000 ML IV ONE (15:25)
[2017-11-29] MEDS ORDERED: NALOXONE HCL 0.4 MG/ML INJ IVP PRN (15:42)
[2017-11-29] MEDS ORDERED: oxyCODONE IR 5 MG TAB PO PRN ×2 (15:42→17:45)
[2017-11-29] MEDS ORDERED: ALBUTEROL 3 ML DEYVIAL IH PRN (15:42)
[2017-11-29] MEDS ORDERED: DEXAMETHASONE 4 MG/ML VIAL IVP PRN (15:42)
[2017-11-29] MEDS ORDERED: MIDAZOLAM 2 MG/2 ML VIAL IVP ONE (15:42)
[2017-11-29] MEDS ORDERED: ACETAMINOPHEN 500 MG TAB PO PRN (15:42)
[2017-11-29] MEDS ORDERED: ONDANSETRON 4 MG/2 ML VIAL IVP PRN ×2 (15:42→17:45)
--- NOTE | 2017-11-29 15:43 | PDANEPAE ---
ANE History of Present Illness L Shoulder ANE Past Medical History - Cardiovascular History Hx Hypertension: No Hx Arrhythmias: No Hx Chest Pain: No Hx Coronary Artery / Peripheral Vascular Disease: No Hx CHF / Valvular Disease: No Hx Palpitations: No - Pulmonary History Hx COPD: No Hx Asthma/Reactive Airway Disease: No Hx Recent Upper Respiratory Infection: No Hx Oxygen in Use at Home: No Hx Sleep Apnea: No Sleep Apnea Screening Result - Last Documented: Negative - Neurologic History Hx Cerebrovascular Accident: No Hx Seizures: No Hx Dementia: No - Endocrine History Hx Diabetes: No - Renal History Hx Renal Disorders: No - Liver History Hx Hepatic Disorders: No - Neurological & Psychiatric Hx Hx Neurological and Psychiatric Disorders: Yes Neurological / Psychiatric History Comment: bipolar severe bonita - Cancer History Hx Cancer: Yes Cancer History Comment: skin cancer - Congenital Disorder History Hx Congenital Disorders: No - GI History Hx Gastrointestinal Disorders: No - Other Health History Other Health History: none - Chronic Pain History Chronic Pain: Yes (neck) - Surgical History Prior Surgeries: cervical fusion x 2015. R rotator cuff; ANE Review of Systems Review of Systems: - Exercise capacity METS (RN): 4 METS ANE Patient History - Allergies Allergies/Adverse Reactions: No Known Allergies Allergy (Verified 11/26/17 12:03) - Home Medications Home Medications: Oxycodone HCl 08/16/17 [Last Taken 11/29/17 08:00] Seroquel 08/16/17 [Last Taken 11/29/17] Wellbutrin 100mg (*) 08/16/17 [Last Taken 11/29/17 08:00] LORazepam [Ativan 1 mg (RX)] 11/26/17 [Last Taken 11/29/17 08:00] - NPO status NPO Since - Liquids (Date): 11/29/17 NPO Since - Liquids (Time): 12:00 NPO Since - Solids (Date): 11/28/17 NPO Since - Solids (Time): 18:00 - Smoking Hx Smoking Status: Former smoker - Family Anes Hx Family Hx Anesthesia Complications: none ANE Labs/Vital Signs - Vital Signs Blood Pressure: 159/105 Heart Rate: 73 Respiratory Rate: 15 O2 Sat (%): 94 Height: 165.1 cm Weight: 54.431 kg ANE Physical Exam - Airway Neck exam: FROM Mallampati Score: Class 2 - Pulmonary Pulmonary: clear to auscultation - Cardiovascular Cardiovascular: regular rate and rhythym - ASA Status ASA Status: II ANE Anesthesia Plan Anesthesia Plan: GA w LMA
--- NOTE | 2017-11-29 15:59 | PDHPUP ---
History & Physical Update H&P update statement: This history and physical update is based on an assessment of the patient which was completed after admission or registration (within 24 hours), but prior to the surgery/procedure. H&P update: H&P reviewed & patient examined, no change in patient's condition since H&P completed, changes noted
[2017-11-29] MEDS ORDERED: PROPOFOL 200 MG/20 ML VIAL ONE (16:03)
[2017-11-29] MEDS ORDERED: fentaNYL 100 MCG/2 ML INJ ONE ×2 (16:04→17:45)
[2017-11-29] MEDS ORDERED: DEXAMETHASONE 4 MG/ML VIAL ONE ×2 (16:05)
[2017-11-29] MEDS ORDERED: ONDANSETRON 4 MG/2 ML VIAL ONE (16:05)
[2017-11-29] MEDS ORDERED: BUPIVACAINE/EPI 0.5% 30 ML SDV ONE (16:29)
[2017-11-29] MEDS ORDERED: BACITRACIN 50,000 UNITS/10 ML SYR IRR ONE ×2 (16:30→17:08)
[2017-11-29] MEDS ORDERED: HYDROmorphONE/DILAUDID 2 MG/ML INJ ONE (16:51)
--- NOTE | 2017-11-29 17:39 | POSTOPPROG ---
Post Op Note Date of Operation: 11/29/17 Surgeon: Usman Valladares Principal Programmer: BENNY Neal and Carl Jordan PAStudewill Anesthesiologist: Nydia Anesthesia: GET(General Endotracheal) Pre-op Diagnosis: L Distal Clavicle fracture with AC separation Post-op Diagnosis: Same Procedure: Distal Clavicle Resection (Bret) and AC Reconstruction Left Findings: Arthrex ENdo button adn Dog bone with #5 Fibertape Inf/Abcess present in the surg proc area at time of surgery?: No EBL: Minimal Complications: None
--- NOTE | 2017-11-29 17:44 | POSTANESTH ---
Post Anesthetic Evaluation Cardiovascular Status: Normal, Stable Respiratory Status: Normal, Stable Level of Consciousness/Mental Status: Can Participate in Eval, Mildly Sleepy, Arousable Pain Control: Adequate, Prn Tx Ordered Nausea/Vomiting Control: Adequate, Prn Tx Ordered Complications Possibly Related to Anesthesia: None Noted
[2017-11-29] MEDS: fentaNYL 100 MCG/2 ML INJ IVP PRN ×2 (17:45→17:53)
[2017-11-29] MEDS ORDERED: HYDROmorphONE/DILAUDID 1 MG/ML INJ ONE ×2 (17:45→18:07)
[2017-11-29] MEDS ORDERED: ONDANSETRON DISINTEGRATING 4 MG TAB PO PRN (17:45)
[2017-11-29] MEDS: HYDROmorphONE/DILAUDID 1 MG/ML INJ IVP PRN ×5 (17:50→18:33)
--- NOTE | 2017-11-29 18:27 | GOP ---
[f rep st] OPERATIVE REPORT DATE OF OPERATION: 11/29/2017 SURGEON: Usman Valladares MD HVAC DESIGN MECHANICAL ENGINEER: assistant prosecuting attorney, Cira Gant PA-C Second medical research assistant, CHRIS Lynch student. PREOPERATIVE DIAGNOSIS: Left distal clavicle fracture with acromioclavicular separation. POSTOPERATIVE DIAGNOSIS: Left distal clavicle fracture with acromioclavicular separation. PROCEDURE PERFORMED: 1. Left distal clavicle resection. 2. Left acromioclavicular joint reconstruction. FINDINGS: The distal clavicle was resected. This left a 1 cm gap at the distal clavicle consistent with a Bret procedure. I brought the humerus to the clavicle restoring its anatomical alignment. The above-noted Arthrex Endobutton suture technique with the superior dog bone was utilized for inte rnal fixation with 2 independently tied FiberTape sutures. INDICATIONS: The patient is a 57-year-old woman who fell sustaining the above injury. Due to the di splaced nature of her fracture and the disruption of the coracoclavicular ligaments, and the fracture 's far distal nature, she is brought to the operating for the above-noted surgical management. DESCRIPTION OF PROCEDURE: After routinely checking the patient's identification, consent and the suc cessful induction of LMA general endotracheal anesthetic, the patient was positioned in the semi-Fowl er beach chair sitting position. The left upper quadrant was now prepped and draped in the usual sta ndard fashion. A surgical time-out was completed. I preinjected the proposed incision line over the clavicle with 0.25% Marcaine, plus epinephrine and then injected down to the level of the coracoid p rocess, which was readily palpable in this thin individual. I then carried the skin incision sharply through skin and then bluntly through her subcutaneous layer . I incised the fascia full-thickness down to the clavicle out to the level of the AC joint. The di stal clavicle was freed from its surrounding soft tissue with partially using the hot knife and jeronimo franks using sharp dissection technique. Once this was mobilized, I took the tissue down from the ante rior aspect of the clavicle in a sleeve fashion leaving a large cuff of tissue posteriorly and anteri or for subsequent repair over the clavicle. I dissected down to the coracoid process. I used a hot knife to dissect the superior surface of the coracoid process. With this exposed, I drilled a military analyst hole for the Endobutton first in the coracoid process and then secondly in a similar trajectory throu gh the clavicle at the central aspect of the clavicle, but in line with its position over the coracoi d with the clavicle reduced. I then passed the Endobutton through the coracoid process. I flipped the button and felt it flip wit h inability to pull this through the coracoid process. I then passed the sutures through the hole in the clavicle and I independently tied them while elevating the scapula via the humerus and bring the clavicle anterior and inferiorly. After this was tied, the redundant pile of knots was then bent fo rward. I thoroughly irrigated the wound with normal saline. We used a small FluoroScan unit to veri fy that the clavicle was now lined up with the acromion and the coracoclavicular distance had now bee n restored to normal interval. I re-irrigated the wound. I closed the full-thickness sleeve of ping osteum and fascia over the clavicle with 0 Vicryl suture. I closed the subcutaneous layer with 2-0 V icryl suture and the skin with subcuticular 4-0 Monocryl, followed by Dermabond. Additional 0.25% Ma rcaine, plus epinephrine were infiltrated around the wound for postoperative comfort and assistance w ith hemostasis. Bleeding was minimal during this case with estimated blood loss of less than 10 cc. She tolerated the procedure well. There were no complications. At the conclusion, she was extubate d and transferred to the recovery area. /[id number]/MODL
[2017-11-29] MEDS ORDERED: oxyCODONE IR 5 MG TAB ONE (18:39)
[2017-11-29] MEDS ORDERED: ACETAMINOPHEN 500 MG TAB ONE (18:40)
[2017-11-29 19:28] VITALS: BP 142/90
== END 2017-11-29 19:51 | disposition home or self-care (01) ==
LOC: FSGY 14:45
PROVIDERS: ATTEND Orthopaedic Surgery Hand Surgery
PROC: 0RSH0ZZ Reposition Left Acromioclavicular Joint, Open Approach (ICD-10-PCS; principal; 2017-11-29 16:00)
PROC: 0PBB0ZZ Excision of Left Clavicle, Open Approach (ICD-10-PCS; principal; 2017-11-29 16:00)
DX: S42.022A Displaced fracture of shaft of left clavicle, initial encounter for closed fracture (principal); S43.52XA Sprain of left acromioclavicular joint, initial encounter; W01.0XXA Fall on same level from slipping, tripping and stumbling without subsequent striking against object, initial encounter; Y93.E1 Activity, personal bathing and showering; Y92.012 Bathroom of single-family (private) house as the place of occurrence of the external cause; F11.20 Opioid dependence, uncomplicated; F31.9 Bipolar disorder, unspecified; Z85.820 Personal history of malignant melanoma of skin; Z78.1 Physical restraint status; Z98.1 Arthrodesis status
CPT/HCPCS: C1713; J0690; J1100; J1170; J2250; J2405; J2704; J3010

== ENCOUNTER → 2017-12-31 | Outpatient (CLI) | payer MEDICAID | LOC: FIMAGING 13:39 | PROVIDERS: ATTEND Internal Medicine | DX: R92.8 Other abnormal and inconclusive findings on diagnostic imaging of breast (principal) ==

== ENCOUNTER 2018-02-15 15:42 | Observation (INO) | payer MEDICAID ==
[2018-02-15] MEDS ORDERED: NS 1,000 ML IV ONE (15:52)
--- NOTE | 2018-02-15 16:03 | EDPHY ---
H & P Stated Complaint: acute onset ams Time Seen by Provider: 02/15/18 15:56 HPI/ROS: HPI CHIEF COMPLAINT: Confusion. HISTORY OF PRESENT ILLNESS: 57-year-old female, she has a history of bipolar disorder, chronic neck pain and takes chronic opioids, she was in her primary care doctor's office earlier this morning around 1015 where she sustained a trigger point injection her left hip. ?Maybe confused at this time but was not 100% Roomate at home noticed she was confused last night. Also seen dropping papers at the doctors office this morning. However she presented back to the primary care doctor's office around 330 this afternoon and was confused. Unclear when this exactly started. However more pronounced today at second visit. She was not making any sense to them. She was asking about a trigger point injection that she had earlier in the day. Due to the confusion and her not having a subsequent 2nd appointment today she was referred to the emergency room. Upon arrival to the emergency room the patient is globally confused. Patient states that it is 2017, she states there is no president, she reports that her family member dropped her off however her primary care doctor's office believes that she drove here. (which she did and found her car in the parkinglot still running with keys and dog in it) She arrives to the ER where I greeted her, evaluated her, her neurological exam is unremarkable, except for profound confusion, no weakness. She additionally has ecchymosis to the left foot. Complains of left hip pain. It Is unclear when she fell when she injured her left foot. I have asked her about this and she reports different time frames. 1 time she tells me that she fell last night, another time last week. She does not make sense. I did speak with Fritz Sotelo, who is not her actual primary care doctor but she is seeing her for pain management and adjusting her narcotics and plan for Suboxone. She did see her this morning around 1015 and she did not notice her being confused. She [facility]. She arrives alone. No family. History is somewhat limited due to AMS, confusion, no family members at bedside. Past Medical History: History bipolar disorder, chronic neck pain, chronic pain , depression, neuropathy tension headache, COPD, pneumonia, hyponatremia Past Surgical History: Breast augmentation, cervical spine fusion, Mohs surgery , right rotator cuff surgery for Social History: Denies use drugs alcohol tobacco. Family History: Noncontributory ROS REVIEW OF SYSTEMS: Limited due to AMS. Exam Constitutional confused, triage nursing summary reviewed, vital signs reviewed , awake/alert. Eyes normal conjunctivae and sclera, EOMI, PERRLA. HENT normal inspection, atraumatic, moist mucus membranes, no epistaxis, neck supple/ no meningismus, no raccoon eyes. Respiratory clear to auscultation bilaterally, normal breath sounds, no respiratory distress, no wheezing. Cardiovascular rate normal, regular rhythm, no murmur, no edema, distal pulses normal. Gastrointestinal soft, non-tender, no rebound, no guarding, normal bowel sounds, no distension, no pulsatile mass. Genitourinary no CVA tenderness. Musculoskeletal no midline vertebral tenderness, full range of motion, no calf swelling, no tenderness of extremities, no meningismus, good pulses, neurovascularly intact. Skin pink, warm, & dry, no rash, Ecchymosis to left foot. Neurologic alert and orient x1, moves all 4 extremities equally, motor intact, sensory intact, CN II-XII intact, normal cerebellar, normal vision, normal speech. Psychiatric normal mood/affect. Heme/Lymph/Immune no lymphadenopathy. Differential Diagnosis: Includes but is not limited to in a particular order subdural hemorrhage, epidural hemorrhage, traumatic subarachnoid, infection, medication change, electrolyte disturbance, cva, metabolic, feller hand, tia. Medical Decision Making: Plan for this patient due to her profound confusion will proceed with CT scan head without contrast rule out intracranial bleed, EKG , chest x-ray, did her left hip pain will perform a left hip x-ray, left foot x- ray due the ecchymosis, blood work, urinalysis, drug screen, alcohol level. Re-evaluation: I did speak with Dr. mccallum, no acute changes on her medications. They have been decreasing her narcotic slightly. But nothing drastic. POC trop 0.00 EKG interpretation by me on record in [facility] system. Impression time of EKG 1621, sinus rhythm rate of 91 no signs of acute ischemia no ST elevation or ST depression no T-wave abnormalities. No prolonged intervals. CT scan head without contrast negative for acute bleed. Called to me by Dr. Anderson 0139: spoke with Dr. Farmer with neurology. Agrees with current work up and plan for admission. 174: Unclear etiology of this time of encephalopathy. However patient remains confused. Otherwise nonfocal neurological exam. Patient's blood work is unrevealing with normal sodium and no high white count. The patient does not appear infected. She does not have a fever here. I do not believe that she would benefit from a spinal tap at this point. I have consult the hospitalist service and spoke with Dr. Strange, Who agrees to admit the patient for encephalopathy. Confusion of unclear etiology. Patient's urinalysis, urine drug screen is pending. Plan for hospital admission. [facility] transfer from [facility] ER to [facility]. This could still be medication induced, or underlying mental illness however given her confusion she will need time in the hospital for further evaluation observation. Patient updated. Agrees for plan for admission however is confused. 1849: Of note this patient, has left her car running in the ER parking lot. We were able to locate it, nursing staff turned off car and locked it. However there is her dog in it. Dog was brought inside with her as it is very cold out. We are trying to contact her sister/close friend to come and get the dog. Drug screen + benzos. She does have Cyclobenzaprine on med list. 1909: patient still confused. Unclear etiology. OTherwise neuro exam unremarkable. Spoke with Dr. Mijares, With [facility] neurology, discussed the case again in detail. Agrees with current plan and treatment. Recommends MRI inpatient/eeg. 1934: Updated Dr. Strange. Source: Patient - Medical/Surgical History Hx Asthma: No Hx Chronic Respiratory Disease: No Hx Diabetes: No Hx Cardiac Disease: No Hx Renal Disease: No Hx Cirrhosis: No Hx Alcoholism: No Hx HIV/AIDS: No Hx Splenectomy or Spleen Trauma: No Other PMH: pmh- chronic pain, bipolar, depression. psh- ortho - Social History Smoking Status: Former smoker Constitutional: Initial Vital Signs Temperature (C) 36.8 C 02/15/18 15:50 Heart Rate 101 H 02/15/18 15:50 Respiratory Rate 18 02/15/18 15:50 Blood Pressure 143/101 H 02/15/18 15:50 O2 Sat (%) 96 02/15/18 15:50 O2 Delivery Mode Room Air Allergies/Adverse Reactions: No Known Allergies Allergy (Verified 02/15/18 16:36) Home Medications: Medication Instructions Recorded oxyCODONE IR [Oxycodone Ir (*)] 5 mg PO BID #0 08/16/17 LORazepam [Ativan (*)] 0.5 mg PO HS PRN 02/15/18 Ondansetron Odt [Zofran Odt 4 mg 4 mg PO Q4 02/15/18 (*)] QUEtiapine FUMARATE [Seroquel 25 25 mg PO HS 02/15/18 mg (*)] buPROPion XL [Wellbutrin 150mg XL] 300 mg PO DAILY 02/15/18 celeCOXIB [Celebrex (*)] 200 mg PO DAILY PRN 02/15/18 lamoTRIgine [LamICTAL 100 MG (*)] 200 mg PO DAILY 02/15/18 Medical Decision Making - Data Points Laboratory Results: Laboratory Results 02/15/18 15:50 02/15/18 15:50 Medications Given: Discontinued Medications Bupropion HCl (Wellbutrin Xl) 300 mg PO DAILY [facility] Stop: 08/15/18 09:14 Last Admin: 02/16/18 09:48 Dose: 300 mg Celecoxib (Celebrex) 200 mg PO DAILY PRN PRN Reason: INFLAMMATORY PAIN Stop: 08/15/18 09:01 Last Admin: 02/16/18 09:49 Dose: 200 mg Sodium Chloride (Ns) 1,000 mls @ 0 mls/hr IV EDNOW ONE; Wide Open PRN Reason: Protocol Stop: 02/15/18 15:53 Last Admin: 02/15/18 16:21 Dose: 1,000 mls Lamotrigine (Lamictal) 200 mg PO DAILY ECHO Stop: 08/15/18 09:14 Last Admin: 02/16/18 09:48 Dose: 200 mg Oxycodone HCl (Oxycodone Ir) 5 mg PO BID [facility] Stop: 02/26/18 09:14 Last Admin: 02/16/18 09:59 Dose: 5 mg Point of Care Test Results: Chemistry 02/15/18 16:02 POC Troponin I 0.00 ng/mL ng/mL (0.00-0.08) Blood Gas/Lactic Acid-Venous 02/15/18 16:28 POC Lactic Acid Joby 1.1 mmol/L mmol/L (0.7-2.1) Urine Dip Collection Date 02/15/18 Collection Time 17:15 Specific [place] (1.002-1.030) 1.020 PH (5.0-7.5) 6.5 Leukocytes (Negative) Negative Nitrites (Negative) Negative Protein (Negative) Negative Glucose (Negative) Negative Ketones (Negative) Negative Urobilnogen (0.2-1.0 EU) 0.2 Bilirubin (Negative) Negative Blood (Negative) 1+ Departure - Departure Disposition: [facility] Inpatient Acute Clinical Impression: Confusion, Encephalopathy Condition: Fair
[2018-02-15 17:14] LABS: PLATELET COUNT 362 10^3/uL (150-400)
[2018-02-15 17:24] LABS: INR 0.94 (0.83-1.16); PROTIME(PATIENT) 12.8 SEC (12.0-15.0)
[2018-02-15] MEDS ORDERED: ONDANSETRON 4 MG/2 ML VIAL IVP PRN (20:57)
[2018-02-15] MEDS ORDERED: ACETAMINOPHEN 325 MG TAB PO PRN (20:57)
[2018-02-15] MEDS ORDERED: ONDANSETRON DISINTEGRATING 4 MG TAB PO PRN (20:57)
--- NOTE | 2018-02-15 21:14 | PDGENHP ---
History and Physical - Chief Complaint AMS, L foot pain - History of Present Illness Hannah Stallings is a 57 yo F with a PMHx of Bipolar d/c, chronic neck pain on opoids who presents to [facility] as a transfer from [facility] for AMS. Per report, patient was in PCP office this morning for trigger point injection in L hip. It was noted that she returned to her PCP's office this afternoon and was confused and not making sense. She was then referred to the [facility] ED. There, she was reportedly globally confused, thought it was 2017 and there is no president. ED MD spoke with Fritz Sotelo who is her pain management doctor and is adjusting her narcotics and plans for eventual Suboxone. ED MD also discussed case with [facility]. Upon my evaluation of patient, she is pleasant, AAOx3. She does have tangential speech noted. Per nursing staff, patient was noted to be talking to inanimate objects on ambulance ride to [facility]. Patient also reports that she fell while walking her dogs down a few stairs. She has had L hip pain and L foot pain with obvious bruising and pain with ROM. History Information - Allergies/Home Medication List Allergies/Adverse Reactions: No Known Allergies Allergy (Verified 02/15/18 16:36) Home Medications: Oxycodone HCl 08/16/17 [Last Taken 11/29/17 08:00] Seroquel 08/16/17 [Last Taken 11/29/17] Wellbutrin 100mg (*) 08/16/17 [Last Taken 11/29/17 08:00] Celecoxib 02/15/18 [Last Taken Unknown] Cyclobenzaprine 02/15/18 [Last Taken Unknown] LaMICtal 02/15/18 [Last Taken Unknown] Lidoderm 02/15/18 [Last Taken Unknown] Ondansetron 02/15/18 [Last Taken Unknown] I have personally reviewed and updated: family history, medical history, social history, surgical history - Past Medical History Additional medical history: Chronic neck pain, Bipolar d/o - Surgical History Reports: no pertinent surgical hx - Family History Positive for: non-pertinent - Social History Smoking Status: Former smoker Review of Systems Review of Systems: ROS: 10pt was reviewed & negative except for what was stated in HPI & below Physical Exam Physical Exam: Temp Pulse Resp BP Pulse Ox 36.3 C 84 16 140/98 H 95 02/15/18 20:58 02/15/18 20:58 02/15/18 20:58 02/15/18 20:58 02/15/18 20:58 Constitutional: no apparent distress Eyes: PERRL Ears, Nose, Mouth, Throat: moist mucous membranes Cardiovascular: regular rate and rhythym, no murmur, rub, or gallop Respiratory: no respiratory distress, clear to auscultation Gastrointestinal: soft, non-tender abdomen Genitourinary: No rider in urethra Skin: warm Musculoskeletal: pain with ROM Neurologic: AAOx3 Psychiatric: interacting appropriately, not encephalopathic, No thought process linear Lab Data & Imaging Review 02/15/18 15:50 02/15/18 15:50 WBC 5.59 10^3/uL (3.80-9.50) 02/15/18 15:50 RBC 4.41 10^6/uL (4.18-5.33) 02/15/18 15:50 Hgb 13.2 g/dL (12.6-16.3) 02/15/18 15:50 Hct 38.8 % (38.0-47.0) 02/15/18 15:50 MCV 88.0 fL (81.5-99.8) 02/15/18 15:50 MCH 29.9 pg (27.9-34.1) 02/15/18 15:50 MCHC 34.0 g/dL (32.4-36.7) 02/15/18 15:50 RDW 12.9 % (11.5-15.2) 02/15/18 15:50 Plt Count 362 10^3/uL (150-400) 02/15/18 15:50 MPV 8.4 fL (8.7-11.7) L 02/15/18 15:50 Neut % (Auto) Not Reported 02/15/18 15:50 Lymph % (Auto) Not Reported 02/15/18 15:50 [place] % (Auto) Not Reported 02/15/18 15:50 Eos % (Auto) Not Reported 02/15/18 15:50 Baso % (Auto) Not Reported 02/15/18 15:50 Nucleat RBC Rel Count Not Reported 02/15/18 15:50 Absolute Neuts (auto) Not Reported 02/15/18 15:50 Absolute Lymphs (auto) Not Reported 02/15/18 15:50 Absolute Monos (auto) Not Reported 02/15/18 15:50 Absolute Eos (auto) Not Reported 02/15/18 15:50 Absolute Basos (auto) Not Reported 02/15/18 15:50 Absolute Nucleated RBC Not Reported 02/15/18 15:50 Immature Gran % Not Reported 02/15/18 15:50 Seg Neutrophils % 89.9 % 02/15/18 15:50 Band Neutrophils % 0.0 % 02/15/18 15:50 Lymphocytes % 7.1 % 02/15/18 15:50 Monocytes % 3.0 % 02/15/18 15:50 Eosinophils % 0.0 % 02/15/18 15:50 Basophils % 0.0 % 02/15/18 15:50 Metamyelocytes % 0.0 % 02/15/18 15:50 Myelocytes % 0.0 % 02/15/18 15:50 Promyelocytes % 0.0 % 02/15/18 15:50 Blast Cells % 0.0 % 02/15/18 15:50 Immature Gran # Not Reported 02/15/18 15:50 Absolute Seg Neuts 5.03 10^3/uL (1.70-6.50) 02/15/18 15:50 Absolute Band Neuts 0.00 10^3/uL (0.00-0.70) 02/15/18 15:50 Absolute Lymphocytes 0.40 10^3/uL (1.00-3.00) L 02/15/18 15:50 Absolute Monocytes 0.17 10^3/uL (0.30-0.80) L 02/15/18 15:50 Absolute Eosinophils 0.00 10^3/uL (0.03-0.40) L 02/15/18 15:50 Absolute Basophils 0.00 10^3/uL (0.02-0.10) L 02/15/18 15:50 Absolute Metamyelocyte 0.00 10^3/mL (0.00-0.00) 02/15/18 15:50 Absolute Myelocytes 0.00 10^3/mL (0.00-0.00) 02/15/18 15:50 Absolute Promyelocytes 0.00 10^3/uL (0.00-0.00) 02/15/18 15:50 Absolute Plasma Cells 0.00 10^3/uL (0.00-0.00) 02/15/18 15:50 Nucleated RBCs 0 /100 WBC (0-0) 02/15/18 15:50 RBC/WBC/PLT Morphology NORMAL (NORMAL) 02/15/18 15:50 Absolute Blast Cells 0.00 10^3/uL (0.00-0.00) 02/15/18 15:50 Plasma Cells % 0.0 % 02/15/18 15:50 Platelet Estimate ADEQUATE (ADEQ) 02/15/18 15:50 PT 12.8 SEC (12.0-15.0) 02/15/18 15:50 INR 0.94 (0.83-1.16) 02/15/18 15:50 APTT 26.2 SEC (23.0-38.0) 02/15/18 15:50 Sodium 135 mEq/L (135-145) 02/15/18 15:50 Potassium 3.6 mEq/L (3.3-5.0) 02/15/18 15:50 Chloride 98 mEq/L (97-110) 02/15/18 15:50 Carbon Dioxide 25 mEq/l (22-31) 02/15/18 15:50 Anion Gap 12 mEq/L (6-14) 02/15/18 15:50 BUN 14 mg/dL (7-23) 02/15/18 15:50 Creatinine 0.7 mg/dL (0.6-1.0) 02/15/18 15:50 Estimated GFR > 60 02/15/18 15:50 Glucose 126 mg/dL (70-100) H 02/15/18 15:50 POC Lactic Acid Joby 1.1 mmol/L (0.7-2.1) 02/15/18 16:28 Calcium 10.0 mg/dL (8.5-10.4) 02/15/18 15:50 Magnesium 2.1 mg/dL (1.6-2.3) 02/15/18 15:50 Total Bilirubin 0.6 mg/dL (0.1-1.4) 02/15/18 15:50 Conjugated Bilirubin 0.1 mg/dL (0.0-0.5) 02/15/18 15:50 Unconjugated Bilirubin 0.5 mg/dL (0.0-1.1) 02/15/18 15:50 AST 21 IU/L (14-46) 02/15/18 15:50 ALT 19 IU/L (9-52) 02/15/18 15:50 Alkaline Phosphatase 108 IU/L (38-126) 02/15/18 15:50 POC Troponin I 0.00 ng/mL (0.00-0.08) 02/15/18 16:02 NT-Pro-B Natriuret Pep 49 pg/mL (0-125) 02/15/18 15:50 Total Protein 7.7 g/dL (6.3-8.2) 02/15/18 15:50 Albumin 4.9 g/dL (3.5-5.0) 02/15/18 15:50 Lipase 49 IU/L (23-300) 02/15/18 15:50 Urine Color YELLOW 02/15/18 17:15 Urine Appearance CLEAR 02/15/18 17:15 Urine pH 6.0 (5.0-7.5) 02/15/18 17:15 Ur Specific [place] 1.015 (1.002-1.030) 02/15/18 17:15 Urine Protein NEGATIVE (NEGATIVE) 02/15/18 17:15 Urine Ketones NEGATIVE (NEGATIVE) 02/15/18 17:15 Urine Blood 1+ (NEGATIVE) H 02/15/18 17:15 Urine Nitrate NEGATIVE (NEGATIVE) 02/15/18 17:15 Urine Bilirubin NEGATIVE (NEGATIVE) 02/15/18 17:15 Urine Urobilinogen NEGATIVE EU (0.2-1.0) 02/15/18 17:15 Ur Leukocyte Esterase NEGATIVE (NEGATIVE) 02/15/18 17:15 Urine RBC 5-10 /hpf (0-3) H 02/15/18 17:15 Urine WBC 1-3 /hpf (0-3) 02/15/18 17:15 Ur Epithelial Cells TRACE /lpf (NONE-1+) 02/15/18 17:15 Urine Mucus TRACE /lpf (NONE-1+) 02/15/18 17:15 Urine Glucose NEGATIVE (NEGATIVE) 02/15/18 17:15 Salicylates < 1.0 mg/dL (2.0-20.0) L 02/15/18 15:50 Urine Opiates Screen NEGATIVE (NEGATIVE) 02/15/18 17:15 Acetaminophen < 10 mcg/mL (10-30) L 02/15/18 15:50 Urine Barbiturates NEGATIVE (NEGATIVE) 02/15/18 17:15 Ur Phencyclidine Scrn NEGATIVE (NEGATIVE) 02/15/18 17:15 Ur Amphetamine Screen NEGATIVE (NEGATIVE) 02/15/18 17:15 U Benzodiazepines Scrn NON-NEGATIVE (NEGATIVE) H 02/15/18 17:15 Urine Cocaine Screen NEGATIVE (NEGATIVE) 02/15/18 17:15 U Marijuana (THC) Screen NEGATIVE (NEGATIVE) 02/15/18 17:15 Ethyl Alcohol < 10 mg/dL (0-10) 02/15/18 15:50 Assessment & Plan Assessment: Encephalopathy (Acute) - Reported to be globally confused on evaluation in [facility] ED - She is AAOx3 on my evaluation, does have tangential speech - Reported to be talking to inanimate objects in ambulance ride to [facility] - Differential includes CVA, TIA, subdural hematoma, medications, drug intoxication, infection - CT head on admission negative for acute etiology - UDS positive for benzos, ETOH, acetaminophen, salicylates negative on admission - [facility] ED MD spoke with [facility] who recommended MRI, EEG, will hold off for now given improvement - Lamotrigine level pending - Will check TSH - Consult Psychiatry in the AM for further management of bipolar medications - Avoid sedative/psychoactive medications L Foot Pain - Appears bruised s/p mechanical fall - Will order XR to r/o fracture - PT/OT ordered Bipolar D/o - Having tangential speech, does not appear overtly manic or depression - Continue home meds once medications reconciled - Consult Psych in the AM for further evaluation and management Chronic Pain with Chronic Narcotic Use - Reports taking Oxycodone 30 mg TID, will reorder after med rec completed FEN: Regular diet Code: FULL Dispo: Admit to Observation, pending clinical course
[2018-02-16 07:55] VITALS: BP 151/99
[2018-02-16] MEDS ORDERED: LORazepam 0.5 MG TAB PO PRN (09:02)
[2018-02-16] MEDS ORDERED: lamoTRIgine 100 MG TAB PO SCH (09:15)
[2018-02-16] MEDS ORDERED: oxyCODONE IR 5 MG TAB PO SCH (09:15)
[2018-02-16] MEDS ORDERED: buPROPion XL 150 MG TAB PO SCH (09:15)
--- NOTE | 2018-02-16 09:35 | ASMTCMCOM ---
CM Note CM Note Notes: Pt is a 57 y/o female admitted for AMS and encephalopathy. Pt with a hx of bipolar d/o. Therapies have been ordered and awaiting recommendations. Needs are TBD at this time. CM to follow. Plan: TBD Date Signed: 02/16/2018 09:34 AM Electronically Signed By:CATHY Motta
--- NOTE | 2018-02-16 11:37 | ASMTLACE ---
ALISON Length of stay for Answers: 1 day current admission Acuity / Level of Answers: No Care: Did the patient have an inpatient admission? Comorbidities - select Answers: Chronic pulmonary disease all that apply Opioid dependence / Chronic pain # of Emergency department Answers: 3-4 visits in the last 6 months Social determinants Answers: Mental health diagnosis (anxiety, depression, pers onality disorders, etc.) Score: 13 Date Signed: 02/16/2018 11:36 AM Electronically Signed By:CATHY Motta
--- NOTE | 2018-02-16 11:47 | ASMTDCNOTE ---
Case Management Discharge Discharge Order Complete? Answers: Yes Patient to Obtain Answers: Independently Medications Transportation Arranged Answers: Family/Friends EMTALA Complete Answers: No Case Management Transport Answers: No Form Complete Faxed Final Orders Answers: No Agency/Facility Transfer Answers: No Report Printed & Faxed to Receiving Agency Family Notified Answers: No Discharge Comments Notes: Therapies have cleared pt to d/c without any needs. CM available for changes. Plan: Independent Date Signed: 02/16/2018 11:46 AM Electronically Signed By:CATHY Motta
--- NOTE | 2018-02-16 13:41 | GDS ---
DISCHARGE DIAGNOSES: 1. Toxic encephalopathy. 2. Left foot sprain. 3. Bipolar. 4. Chronic pain with chronic narcotic dependency. HISTORY: The patient is a 57-year-old female, who presented from her primary care office after showi ng up at their office very altered mentally. She was admitted to the hospital because she was confus ed. This was global confusion. There were no focal deficits. She rapidly resolved back to a normal mental status. So no further workup was taken. The suspicion was very high this was a toxic enceph alopathy due to medication misadministration. She was taking Flexeril 3 times a day for the last few weeks and she thinks that is the culprit medication. There were also some concerns regarding mixing of sedatives and psychoactive medications. She reported last night that she took oxycodone 30 mg p. o. t.i.d., although we could only confirm a prescription for 5 mg b.i.d. She also mentioned to nurses taking Ativan, which may have also been contributing. Given her inconsistent history regarding her medications, I think there is some concern regarding her not taking them quite as prescribed. Hence the most likely diagnosis here would be toxic encephalopathy. Her rapid resolution also is in favor of this. DISCHARGE MEDICATIONS: Please see computerized record for full detailed list. There are no new medi cations given at time of hospital discharge. ADDITIONAL DISCHARGE INSTRUCTIONS: 1. Stop Flexeril. 2. Take medications only as prescribed with caution for mixing mind-altering medications together rodriguez ch as narcotics, Ativan, and Flexeril. Greater than 30 minutes' time was spent arranging this discharge. Patient seen and examined by me on the day of discharge. /[id number]/MODL
[2018-02-16] MEDS ORDERED: QUEtiapine FUMARATE 25 MG TAB PO SCH (21:00)
--- NOTE | 2018-02-23 07:05 | CPEKG ---
Test Reason : OPEN Blood Pressure : / mmHG Vent. Rate : 091 BPM Atrial Rate : 091 BPM P-R Int : 157 ms QRS Dur : 082 ms QT Int : 386 ms P-R-T Axes : 046 -24 036 degrees QTc Int : 475 ms Sinus rhythm Borderline left axis deviation Confirmed by Martínez Crowder ([id number]) on 02/23/2018 7:04:54 AM Referred By: Confirmed By:Martínez Crowder
== END 2018-02-16 13:24 | disposition home or self-care (01) ==
LOC: CED 15:42 → CEDHOLD 17:45 → F3E 20:52
PROVIDERS: ADMIT Internal Medicine; ATTEND Internal Medicine
DX: G92 Toxic encephalopathy (principal); S93.402A Sprain of unspecified ligament of left ankle, initial encounter; W19.XXXA Unspecified fall, initial encounter; Z91.14 Patient's other noncompliance with medication regimen; M25.552 Pain in left hip; F31.9 Bipolar disorder, unspecified; G89.29 Other chronic pain; M54.2 Cervicalgia; F11.20 Opioid dependence, uncomplicated; J44.9 Chronic obstructive pulmonary disease, unspecified; Z87.891 Personal history of nicotine dependence; Z98.1 Arthrodesis status
CPT/HCPCS: 70450; 71045; 73501; 73630; 97161; 97165; 99285; G0378; 80076-PO; 80175-90; 80307-PO; 83605-PO; 84484-PO; G0480

== ENCOUNTER → 2018-02-15 | Outpatient (CLI) | payer MEDICAID | LOC: CIMAGING 11:18 | PROVIDERS: ATTEND Family Medicine | DX: S79.912A Unspecified injury of left hip, initial encounter (principal); S99.922A Unspecified injury of left foot, initial encounter | CPT/HCPCS: 73501-PO; 73620-PO ==

== ENCOUNTER → 2018-04-08 | Outpatient (CLI) | payer MEDICAID | LOC: FLAB 11:18 | PROVIDERS: ATTEND Internal Medicine | DX: M16.11 Unilateral primary osteoarthritis, right hip (principal); S92.405A Nondisplaced unspecified fracture of left great toe, initial encounter for closed fracture ==

== ENCOUNTER → 2018-05-11 | Outpatient (CLI) | payer MEDICAID | LOC: FIMAGING 10:46 | PROVIDERS: ATTEND Podiatrist | DX: S92.412D Displaced fracture of proximal phalanx of left great toe, subsequent encounter for fracture with routine healing (principal) ==

== ENCOUNTER → 2018-05-18 | Outpatient (CLI) | payer MEDICAID | LOC: FIMAGING 09:08 | PROVIDERS: ATTEND Internal Medicine | DX: Z12.31 Encounter for screening mammogram for malignant neoplasm of breast (principal); Z98.82 Breast implant status ==

== ENCOUNTER 2018-08-31 01:00 | Emergency (ER) | payer MEDICAID | END 2018-08-31 05:50 | disposition home or self-care (01) ==